=== PATIENT | male | born 1975 | race African-American/Black ===

== ENCOUNTER → 2018-10-06 | Outpatient (CLI) | payer BC ==
[~2018-10-06] MED LIST: AMLO10TA6 PO; ATOR20TA58 PO; DOCU-109 PO; FLUT9.9S NS; HYDR-2868 PO; INSU100I13 SQ; INSU100I17 SQ; METO50TA6 PO; OXYC1TAB15 PO; SILD100T PO; VALS1TAB22 PO
[2018-10-06 14:16] LABS: BASO # 0.1 x10^3/uL (0.0-0.2); BASO % 1 % (0-3); EOS # 0.4 x10^3/uL (0.0-0.7); EOS % 5 % (0-3); HEMATOCRIT 41.7 % (39.0-53.0); HEMOGLOBIN 14.1 g/dL (13.0-17.5); LYMPH # 2.8 x10^3/uL (1.0-4.8); LYMPH % 33 % (24-48); MEAN CORPUSCULAR HEMOGLOBIN 27 pg (25-35); MEAN CORPUSCULAR HGB CONC 34 g/dL (31-37); MEAN CORPUSCULAR VOLUME 81 fL (79-100); MONO # 0.5 x10^3/uL (0.0-1.1); MONO % 6 % (0-9); NEUT # 4.7 x10^3uL (1.8-7.7); NEUT % 56 % (31-73); PLATELET COUNT 201 x10^3/uL (140-400); RED BLOOD COUNT 5.18 x10^6/uL (4.30-5.70); RED CELL DISTRIBUTION WIDTH 13.2 % (11.5-14.5); WHITE BLOOD COUNT 8.4 x10^3/uL (4.0-11.0)
[2018-10-06 14:36] LABS: ALBUMIN 3.9 g/dL (3.4-5.0); CREATININE 1.5 mg/dL (0.7-1.3); TOTAL PROTEIN 7.9 g/dL (6.4-8.2)
[2018-10-06 14:37] LABS: GFR 61.5; POTASSIUM 3.6 mmol/L (3.5-5.1); TOTAL BILIRUBIN 0.4 mg/dL (0.2-1.0)
== END | disposition home or self-care (01) ==
LOC: SURGPAT 12:36
PROVIDERS: ATTEND Surgery
DX: Z01.818 Encounter for other preprocedural examination (principal); K80.20 Calculus of gallbladder without cholecystitis without obstruction
CPT/HCPCS: 36415; 80053; 85025

== ENCOUNTER 2018-10-11 09:12 | Day surgery (SDC) | payer BC ==
[~2018-10-11] VITALS: Ht 176.5 cm; Wt 92.5 kg
[~2018-10-11 09:12] MED LIST changes: -DOCU-109 PO; +HYDROmorphone 2 MG/ML VIAL IV PRN; +IV RINGERS,LACTATED 1000ML 1,000 ML IV SCH; +LIDOCAINE 1% PF 2 ML VIAL. ID PRN; +MORPHINE SULFATE 2 MG/ML VIAL. IV PRN; +ONDANSETRON PF 4 MG/2 ML VIAL. IV PRN; -OXYC1TAB15 PO; +PROCHLORPERAZINE 10 MG/2 ML VIAL. IV PRN; +fentaNYL PF VIAL 100 MCG/2 ML VIAL IV PRN
[2018-10-11] MEDS ORDERED: DEXAMETHASONE SOD PHOS 20 MG/5 ML VIAL. ONE (09:36)
[2018-10-11] MEDS ORDERED: PROPOFOL 20 ML IV ONE ×2 (09:36→13:09)
[2018-10-11] MEDS ORDERED: LIDOCAINE 2% PF Vial for OR 5 ML VIAL. ONE (09:36)
[2018-10-11] MEDS ORDERED: ROCURONIUM 50 MG/5 ML VIAL. ONE (09:37)
[2018-10-11] MEDS ORDERED: fentaNYL PF VIAL 100 MCG/2 ML VIAL ONE ×2 (09:37→13:49)
[2018-10-11] MEDS ORDERED: MIDAZOLAM HCL/PF 2 MG/2 ML VIAL. ONE (09:37)
[2018-10-11] MEDS ORDERED: BUPIVAC MPF-EPI 0.5%-1:200000 30 ML VIAL. ONE (11:32)
[2018-10-11] MEDS ORDERED: IOHEXOL 300 MG/ML 100ML VIAL. ONE (11:33)
[2018-10-11] MEDS ORDERED: SURGICEL HEMOSTAT 4X8 EACH. ONE (11:33)
[2018-10-11] MEDS ORDERED: GLUCAGON,HUMAN RECOMBINANT 1 MG/ML VIAL. ONE (11:33)
[2018-10-11] MEDS ORDERED: ePHEDrine PF IN SALINE 50 MG/5 ML DISP.SYRIN IV ONE (13:05)
[2018-10-11] MEDS ORDERED: PHENYLEPHRINE in 0.9% NACL PF 1 MG/10 ML SYRINGE. IV ONE (13:49)
[2018-10-11] MEDS ORDERED: NEOSTIGMINE METHYLSULFATE 5 MG/5 ML SYRINGE. ONE (13:49)
[2018-10-11] MEDS ORDERED: GLYCOPYRROLATE 1 MG/5 ML VIAL. ONE (13:49)
[2018-10-11] MEDS ORDERED: ONDANSETRON PF 4 MG/2 ML VIAL. ONE (13:53)
[2018-10-11] MEDS ORDERED: KETOROLAC 30 MG/ML INJ FOR OR. INJ ONE (14:03)
--- NOTE | 2018-10-11 14:27 | OP ---
DATE OF SURGERY: 10/11/2018 PREOPERATIVE DIAGNOSES: Laparoscopic cholecystectomy and umbilical hernia. POSTOPERATIVE DIAGNOSES: Laparoscopic cholecystectomy and umbilical hernia. PROCEDURE: 1. Laparoscopic cholecystectomy. 2. Primary repair of umbilical hernia. SURGEON: Alexei Rollins MD CORE CUTTER: NICKI Martinez. ANESTHESIA: General endotracheal. ESTIMATED BLOOD LOSS: 25 mL. INTRAVENOUS FLUIDS: 1500 mL. INDICATIONS: The patient is a 42-year-old gentleman with right upper quadrant pain. Abdominal ultrasound shows stones and sludge. He is brought for cholecystectomy. OPERATIVE FINDINGS: The gallbladder was supple and distended with viscous bile. Visual inspection of the remainder of the abdomen failed to reveal obvious abnormalities aside his umbilical hernia. DESCRIPTION OF PROCEDURE: The patient brought to the operating suite, given a general endotracheal anesthetic and the abdomen prepped and draped in usual sterile fashion. A supraumbilical incision was infiltrated with local anesthetic, incised and a 5 mm Visiport used to safely gain access into the abdominal cavity, taking care to avoid injury to abdominal contents. Pneumoperitoneum established. Camera inserted. Inspection carried out with results as noted above. With the table in reverse Trendelenburg rolled to the left, the epigastric, midclavicular, and lateral ports were placed under direct vision. The gallbladder was quite distended and thin walled and as such in order to grasp it, we aspirated approximately 100 mL of viscous dark bile. This allowed grasping of the fundus and retracting the gallbladder superolaterally. The cystic duct and cystic artery were exposed. Cystic duct clipped on the gallbladder side. Attempted cholangiogram were unsuccessful due to my inability to thread the catheter in the cystic duct. In light of this, it was clipped x 3 and divided, taking care to avoid compromise or injury to the common duct. The anterior cystic artery was clipped and divided and the posterior branch similarly clipped and divided and gallbladder freed from the bed with cautery dissection and placed in an EndoCatch bag. Hemostasis obtained with electrocautery. No evidence of bile leak in the fossa. A 19-Bhutanese round Nawaf drain was brought through the epigastric port out the lateral port, sewn to the skin with a 2-0 silk and left in the subhepatic space for postoperative drainage. Table returned to level. Gallbladder delivered through the epigastric incision. Epigastric incision was closed with 0 Vicryl suture. At 6 cm of water, no bleeding from the closure or from the midclavicular port site after its removal. The supraumbilical port excised and the small incision extended to allow dissection of the umbilical hernia sac. When the second being removed, the small defect was closed with interrupted inverted [id number] 0 PDS sutures. When a correct sponge count was obtained, the umbilical skin was tacked to the underlying repair with 3-0 Vicryl. Skin incisions closed with subcuticular 4-0 Monocryl. Steri-Strips and sterile dressings applied. The patient was awakened from his anesthetic and taken to the recovery room in satisfactory condition. ALEXEI ROLLINS MD DR: HEIKE/maikol JOB#: [id number] / [id number]
--- NOTE | 2018-10-11 14:29 | DISCH ---
DISCHARGE INSTRUCTIONS Condition on Discharge Condition on Discharge: Stable Activity After Discharge Activity Instructions for Disc: Activity as tolerated, Avoid exertion Driving Instructions after Dis: Do not drive (3-4 days) Diet after Discharge Diet after Discharge: Regular Wound Incision Care Wound/Incision Care: Ice to area for comfort Other wound/incision instructi: lenny shower Follow-Up Follow up with: Jaden Solis with JARON output IVY ROLLINS MD Oct 11, 2018 14:29
[2018-10-11] MEDS ORDERED: INSULIN LISPRO 100 UNIT/ML 3ML VIAL. SQ ONE (15:15)
[2018-10-11] MEDS ORDERED: OXYC1TAB15 PO (15:16)
[2018-10-11] MEDS ORDERED: DOCU-109 PO (15:18)
[2018-10-11] MEDS ORDERED: oxyCODONE/APAP 5/325 1 TAB TABLET ONE (16:14)
[2018-10-11 16:43] VITALS: BP 148/88
[2018-10-11] MEDS ORDERED: oxyCODONE/APAP 5/325 1 TAB TABLET PO ONE (19:45)
--- NOTE | 2018-10-13 15:09 | PATHOLOGY ---
[facility] Accession Number: [id number] . 01 Material submitted: . PART A: GALLBLADDER PART B: UMBILICAL HERNIA SAC . 01 Clinical history: . Gallstones . 02 Diagnosis: A. Gallbladder, laparoscopic cholecystectomy: - Chronic cholecystitis, mild. . B. Segments of fibromembranous and fibroadipose tissue, umbilical hernia repair: - Hernia sac. . (JPM:director auto; 10/13/2018) MBR/10/13/2018 . 02 Comment: There are no calculi identified within the gallbladder lumen or specimen container. There is no evidence of malignancy. . (JPM:director auto; 10/13/2018) . 02 Electronically signed: . Swapnil Randolph MD, Pathologist NPI- [id number] . 01 Gross description: . A. The specimen is received in formalin, labeled "Roycee Ohajazu, gallbladder". Received is an intact gallbladder measuring 8.2 x 2.8 x 1.0 cm in greatest dimensions displaying pink-girard serosal surfaces. Opening the gallbladder reveals a velvety, red-marcos mucosa with a gallbladder wall thickness of 0.1 cm. Calculi are not present upon filtration of the gallbladder and specimen container, and no masses or lesions are noted grossly. Product Test Engineer sections, to include the proximal margin, are submitted in cassette A1. . B. The specimen is received in formalin, labeled "Roycee Ohajazu, umbilical hernia sac". Received are multiple segments of yellow-marcos fibroadipose tissue measuring 2.2 x 1.8 x 1.0 cm in aggregate dimensions. No distinct nodules or lesions are noted grossly. The specimen is submitted representatively in cassette B1. (CAA; 10/12/2018) QAC/QAC . 02 Pathologist provided ICD-10: K81.1, K42.9 . 02 CPT . 326523, 592210 Specimen Comment: A courtesy copy of this report has been sent to Specimen Comment: [phone], . Specimen Comment: Report sent to / DR CHAVEZ Performed at: 01 [facility] [address], [place], [place] [id number] MD Tony Patel MD Phone: [phone] Performed at: 02 [facility] [address], [place] [id number] MD Swapnil Randolph MD Phone: [phone]
== END 2018-10-11 18:24 | disposition home or self-care (01) ==
LOC: SURG 09:12
PROVIDERS: ATTEND Surgery
DX: K81.1 Chronic cholecystitis (principal); K42.9 Umbilical hernia without obstruction or gangrene; I10 Essential (primary) hypertension; E11.9 Type 2 diabetes mellitus without complications; Z79.84 Long term (current) use of oral hypoglycemic drugs; Z98.890 Other specified postprocedural states; Z80.0 Family history of malignant neoplasm of digestive organs; Z83.3 Family history of diabetes mellitus; Z79.899 Other long term (current) drug therapy
CPT/HCPCS: 47562; 49585; 82962; 88302; 88304; A7015; J0690; J1100; J1885; J2001; J2250; J2370; J2405; J2704; J2710; J3010; J3490; J7030; J7120; Q9967; J1610

== ENCOUNTER → 2018-11-03 | Outpatient (CLI) | payer BC ==
[2018-10-11 16:43] VITALS: BP 148/88
[~2018-11-03] MED LIST changes: +DOCU-109 PO; -HYDROmorphone 2 MG/ML VIAL IV PRN; -IV RINGERS,LACTATED 1000ML 1,000 ML IV SCH; -LIDOCAINE 1% PF 2 ML VIAL. ID PRN; -MORPHINE SULFATE 2 MG/ML VIAL. IV PRN; -ONDANSETRON PF 4 MG/2 ML VIAL. IV PRN; +OXYC1TAB15 PO; -PROCHLORPERAZINE 10 MG/2 ML VIAL. IV PRN; -fentaNYL PF VIAL 100 MCG/2 ML VIAL IV PRN
--- NOTE | 2018-11-03 11:16 | RAD ---
MRI Thoracic Spine without contrast History: Mid back pain, history of cervical fusion Technique: Multiplanar, multi sequential noncontrast MR imaging was performed of the thoracic spine. Comparison: None Findings: There is motion degradation. Thoracic vertebral body stature and AP alignment are maintained. Thoracic cord is not expanded, no expansile signal abnormality, cannot accurately evaluate for more subtle signal abnormality due to the degree of motion. There is no significant thoracic spinal stenosis. There is mild attenuation of the posterior thecal sac of mid to superior thoracic levels most likely due to posterior epidural lipomatosis. No significant focal posterior disc abnormality is identified of the thoracic spine. There is no significant marrow edema. Intervertebral disc spaces are relatively preserved. There is likely small hemangioma of the T12 vertebral body. Neural foramina are not significantly narrowed, possible mild narrowing by facet on the right at T11-12. There could be a T1 and T2 hyperintense lesion of the inferior left thyroid gland about 1.8 cm although poorly characterized. Impression: 1. Exam is degraded by significant motion. Posterior epidural signal abnormality of the mid to superior thoracic levels is probably due to epidural lipomatosis with mild attenuation of the thecal sac, no significant thoracic spinal stenosis. 2. There may be T1 and T2 hyperintense lesion of the left thyroid gland as can be seen with colloid cyst although poorly characterized. Electronically signed by: King Holley MD (11/03/2018 11:12 AM) [facility]
== END | disposition home or self-care (01) ==
LOC: MRI 09:13
PROVIDERS: ATTEND Family Medicine
DX: R20.2 Paresthesia of skin (principal); M54.6 Pain in thoracic spine
CPT/HCPCS: 72146

== ENCOUNTER 2018-11-07 14:42 | Emergency (ER) | payer BC ==
[~2018-11-07] VITALS: Ht 177.8 cm; Wt 88.5 kg
[~2018-11-07 14:42] MED LIST changes: -AMLO10TA6 PO; +AMLO10TA8 PO
[2018-11-07 14:48] VITALS: BP 170/89
--- NOTE | 2018-11-07 15:32 | PHYS DOC ---
Past Medical History Additional Past Medical Histor: gastroparesis Past Surgical History: Cholecystectomy Additional Past Surgical Histo: hernia Adult General Chief Complaint Chief Complaint: OTHER COMPLAINTS HPI HPI 42-year-old male presents to ER with his who reports patient had foul- smelling drainage from mid umbilical surgical site this morning. Patient had hernia and gallbladder surgery on 10/11/[address] Stanley and has had f/u with him since surg. Patient reports he has had some abdominal pain since surgery denies acute changes. He denies fever, nausea or vomiting, change in bowel pattern, swelling in extremities. Patient states he has ongoing issues with nerve pain which he has been evaluated for. Patient's reports patient has recently been diagnosed with gastroparesis and for the past 5 months has had ongoing issues with medical symptoms-both deny acute change in patient's condition since surgery last month. Pt reports he had regular bowel movement this morning and has been urinating without symptoms. Patient also has complaints of ongoing nerve pain which she reports any type of touch to chest or abdomen he has nerve pain which is also been ongoing for the past several months. He has talked to his doctors regarding this symptom as well denies acute changes, swelling, dizziness, or skin discoloration. Patient reports he has follow-up appointment with Dr. Stanley on . Review of Systems Review of Systems Constitutional: Denies fever or chills [] Respiratory: Denies cough or shortness of breath [] Cardiovascular: No additional information not addressed in HPI [] GI: Denies nausea, vomiting, bloody stools or diarrhea. Reports intermittent abd pain at mid umbilical- no acute change since surg. in September : Denies dysuria or hematuria [] Musculoskeletal: Denies back pain or joint pain [] Integument: Reports surgical site umbilical w/foul smelling drainage this morning Neurologic: Denies headache, focal weakness or sensory changes [] Endocrine: Denies polyuria or polydipsia [] All other systems were reviewed and found to be within normal limits, except as documented in this note. Allergies Allergies Allergies Coded Allergies Type Severity Reaction Last Updated Verified No Known Drug Allergies 10/06/18 No Physical Exam Physical Exam Constitutional: Well developed, well nourished, no acute distress, non-toxic appearance. [] HENT: Normocephalic, atraumatic, bilateral external ears normal, oropharynx moist, no oral exudates, nose normal. [] Eyes: Pupils equal, conjunctiva normal, no discharge. [] Neck: Normal range of motion, no tenderness, supple, no stridor. [] Cardiovascular: Heart rate regular rhythm, no murmur [] Lungs & Thorax: Bilateral breath sounds clear to auscultation. Resp. equal/ nonlabored Abdomen: Bowel sounds normal, soft-no distention or rigidity, tenderness on palpation around surgical site 3 laparoscopic sites right upper abdomen which are well healing with no drainage, swelling, or erythema at sites. Umbilical surg. site with scabbing to area-no purulent drainage, erythema, palpable mass, or swelling around site. No masses, no pulsatile masses. [] Skin: Warm, dry, no erythema, no rash. [] Back: No tenderness, no CVA tenderness. [] Extremities: No tenderness, no cyanosis, no clubbing, ROM intact, no edema. [] Neurologic: Alert and oriented X 3, normal motor function, normal sensory function, no focal deficits noted. [] Psychologic: Affect normal, judgement normal, mood normal. [] Current Patient Data Vital Signs Vital Signs Date Time Temp Pulse Resp B/P (MAP) Pulse Ox O2 Delivery O2 Flow Rate FiO2 11/07/18 14:48 98.5 81 18 170/89 (116) 100 Room Air 98.5 Lab Values Laboratory Tests Test 11/07/18 15:20 White Blood Count 7.4 x10^3/uL (4.0-11.0) Red Blood Count 5.07 x10^6/uL (4.30-5.70) Hemoglobin 13.7 g/dL (13.0-17.5) Hematocrit 41.2 % (39.0-53.0) Mean Corpuscular Volume 81 fL (79-100) Mean Corpuscular Hemoglobin 27 pg (25-35) Mean Corpuscular Hemoglobin Concent 33 g/dL (31-37) Red Cell Distribution Width 13.4 % (11.5-14.5) Platelet Count 178 x10^3/uL (140-400) Neutrophils (%) (Auto) 55 % (31-73) Lymphocytes (%) (Auto) 34 % (24-48) Monocytes (%) (Auto) 6 % (0-9) Eosinophils (%) (Auto) 4 % (0-3) H Basophils (%) (Auto) 1 % (0-3) Neutrophils # (Auto) 4.1 x10^3uL (1.8-7.7) Lymphocytes # (Auto) 2.5 x10^3/uL (1.0-4.8) Monocytes # (Auto) 0.5 x10^3/uL (0.0-1.1) Eosinophils # (Auto) 0.3 x10^3/uL (0.0-0.7) Basophils # (Auto) 0.1 x10^3/uL (0.0-0.2) Sodium Level 140 mmol/L (136-145) Potassium Level 3.4 mmol/L (3.5-5.1) L Chloride Level 98 mmol/L (98-107) Carbon Dioxide Level 35 mmol/L (21-32) H Anion Gap 7 (6-14) Blood Urea Nitrogen 15 mg/dL (8-26) Creatinine 1.4 mg/dL (0.7-1.3) H Estimated GFR (Cockcroft-Gault) 66.6 BUN/Creatinine Ratio 11 (6-20) Glucose Level 271 mg/dL (70-99) H Calcium Level 9.1 mg/dL (8.5-10.1) Total Bilirubin 0.3 mg/dL (0.2-1.0) Aspartate Amino Transferase (AST) 16 U/L (15-37) Alanine Aminotransferase (ALT) 24 U/L (16-63) Alkaline Phosphatase 123 U/L (46-116) H Total Protein 7.5 g/dL (6.4-8.2) Albumin 3.4 g/dL (3.4-5.0) Albumin/Globulin Ratio 0.8 (1.0-1.7) L Laboratory Tests 11/07/18 15:20 Laboratory Tests 11/07/18 15:20 EKG EKG [] Radiology/Procedures Radiology/Procedures [] Course & Med Decision Making Course & Med Decision Making Pertinent Labs reviewed. (See chart for details) During initial exam patient reports his symptoms have been ongoing for the past 5 months with no acute change since his surgery. Patient and his did not mention initially that patient has been on gabapentin and Lyrica for his paresthesias. Following hernia and gallbladder surgery patient was started on Protonix and Reglan and his Lyrica had been stopped. Patient and his were uncertain as to why he was unable to take Lyrica or gabapentin. Discussed he should discuss this further with his doctor as her can be interactions between the Lyrica and Reglan. In patient's record it was also noted that patient had MRI of his thoracic spine 11/03/18 due to his ongoing paraesthesias which was not mentioned during initial exam as well- which he is d/t f/u with Dr. Chavez to discuss those results. 1620: Pt was evaluated in the ER for surgical wound recheck had basic labs done. Exam was unremarkable on surgical sites to right upper abdomen and umbilical. No obvious signs of infection and WBCs normal limits at 7.4 with no bands. Glucose elevated at 271 which patient reports he had just eaten prior to coming to the ER and anion gap normal limits at 7. Patient reports his morning blood glucose was 80 and they do monitor at home. With examination normal limits and labs unremarkable discussed plans for home discharge as patient has follow-up appointment this week with Dr. Stanley. Pt has been in no distress and was afebrile. Pt had no signs of infection at surgical sites and abd was soft/ nondistended with no rigidity or palpable masses at surgical sites. Education provided on signs and symptoms to return to ER for an discharge instructions were discussed. Staff Physician Addendum: I was working in the ER during the course of this patient's visit. I was available for consultation as needed, but I was not directly involved in the care of this patient. Dragon Disclaimer Dragon Disclaimer This electronic medical record was generated, in whole or in part, using a voice recognition dictation system. Departure Departure Impression: Primary Impression: Encounter for post surgical wound check Additional Impression: Paresthesia Disposition: HOME, SELF-CARE Condition: STABLE Referrals: JUANY CHAVEZ MD (PCP) Patient Instructions: Paresthesia, Wound Check Additional Instructions: Keep scheduled appointment this week with Dr. Stanley for reevaluation of surgical wounds. Continue to clean surgical sites as you have previously been doing at home. Continue monitoring for signs of infection. Further discuss concerns of nerve pain with your primary care physician on options for treatment. Problem Qualifiers CHRISTAL CHANG APRN Nov 07, 2018 15:32 KEERTHI GIANG MD Nov 07, 2018 17:44
[2018-11-07 15:41] LABS: BASO # 0.1 x10^3/uL (0.0-0.2); BASO % 1 % (0-3); EOS # 0.3 x10^3/uL (0.0-0.7); EOS % 4 % (0-3); HEMATOCRIT 41.2 % (39.0-53.0); HEMOGLOBIN 13.7 g/dL (13.0-17.5); LYMPH # 2.5 x10^3/uL (1.0-4.8); LYMPH % 34 % (24-48); MEAN CORPUSCULAR HEMOGLOBIN 27 pg (25-35); MEAN CORPUSCULAR HGB CONC 33 g/dL (31-37); MEAN CORPUSCULAR VOLUME 81 fL (79-100); MONO # 0.5 x10^3/uL (0.0-1.1); MONO % 6 % (0-9); NEUT # 4.1 x10^3uL (1.8-7.7); NEUT % 55 % (31-73); PLATELET COUNT 178 x10^3/uL (140-400); RED BLOOD COUNT 5.07 x10^6/uL (4.30-5.70); RED CELL DISTRIBUTION WIDTH 13.4 % (11.5-14.5); WHITE BLOOD COUNT 7.4 x10^3/uL (4.0-11.0)
[2018-11-07 15:59] LABS: CALCIUM 9.1 mg/dL (8.5-10.1); CREATININE 1.4 mg/dL (0.7-1.3); GFR 66.6; POTASSIUM 3.4 mmol/L (3.5-5.1)
[2018-11-07 16:05] LABS: ALBUMIN 3.4 g/dL (3.4-5.0); ALBUMIN/GLOBULIN RATIO 0.8 (1.0-1.7); TOTAL BILIRUBIN 0.3 mg/dL (0.2-1.0); TOTAL PROTEIN 7.5 g/dL (6.4-8.2)
== END 2018-11-07 17:05 | disposition home or self-care (01) ==
LOC: ER 14:42
DX: Z48.01 Encounter for change or removal of surgical wound dressing (principal); R20.2 Paresthesia of skin; R10.9 Unspecified abdominal pain; Z90.49 Acquired absence of other specified parts of digestive tract
CPT/HCPCS: 36415; 80053; 85025; 99283

== ENCOUNTER → 2018-11-09 | Outpatient (CLI) | payer BC ==
[2018-11-07 14:48] VITALS: BP 170/89
--- NOTE | 2018-11-09 17:56 | KCIC ---
Examination: THYROID ULTRASOUND History: Left thyroid nodule seen on MRI of the thoracic spine dated 11/03/2018 Comparison/Correlation: None Findings: Thyroid ultrasound exam was performed. Right thyroid lobe measures 5.54 cm x 2.25 cm x 1.91 cm. Left thyroid lobe nodule measures 5.45 cm x 1.48 cm x 1.49 cm. At the right thyroid interpolar region, there is a 0.9 cm x 0.6 cm x 1.1 cm solid nodule. More inferiorly involving the right thyroid lobe, there is a 2.2 cm x 1.3 cm x 1.2 cm tall solid nodule of echogenicity which is slightly lower than the thyroid gland. It is well-circumscribed. As the left thyroid interpolar region, there is a 1.1 cm x 0.96 cm x 0.8 cm cystic lesion. At the left lobe lower pole, there is a 1.4 cm x 2.1 cm x 1.4 cm tall cystic lesion with solid component within it. At the left side of the thyroid isthmus, there is a 1 cm diameter nodule. Smaller nodules which are subcentimeter in size are present bilaterally involving the thyroid gland. No significant flow involving the nodules identified on color Doppler imaging. Impression: TI-RADS category 2. Multiple nodules are present. Right thyroid lobe nodule has a stable corresponding finding on CT of the cervical spine with contrast dated 06/13/2004. The left thyroid mixed cystic and solid lesion does not have the corresponding finding on 06/13/2004 CT exam. Interval follow-up in 8 months to assess stability should be considered by ultrasound. Electronically signed by: Cal Brandt MD (11/09/2018 5:51 PM) [id number]
== END | disposition home or self-care (01) ==
LOC: KCIC US 14:15
PROVIDERS: ATTEND Family Medicine
DX: E04.2 Nontoxic multinodular goiter (principal)
CPT/HCPCS: 76536

== ENCOUNTER → 2019-05-06 | Outpatient (CLI) | payer BC ==
--- NOTE | 2019-05-06 15:09 | KCIC ---
Thyroid ultrasound HISTORY: Follow-up thyroid nodules COMPARISON: November 09, 2018. Right thyroid: Measures 5.6 x 1.9 x 1.8 cm. Mostly solid nodule in the right lower pole measures 2.1 x 1.3 x 1.2 cm with internal vascularity, appears similar prior study. Another mostly solid appearing nodule at the mid to upper pole measures 12 x 8 x 5 mm with vascularity, appears similar as the prior study. There are some additional much smaller subcentimeter nodules identified. Isthmus: Measures 5 mm. Left thyroid: Measures 4.8 x 1.7 x 1.5 cm. Mostly cystic nodule in the lower pole measures 19 x 18 x 16 mm, demonstrates some solid nodularity along the wall and peripheral vascularity. Previously measured 14 x 21 x 14 mm, and is now slightly larger in 2 dimensions.. Another mostly cystic nodule at the midpole measures 11 x 10 x 8 mm, not significantly changed, with a small calcification or nodular component. Multiple additional smaller subcentimeter nodules are also present. IMPRESSION: 1. Mostly cystic nodule at the left lower thyroid measures slightly larger in 2 dimensions on today's exam. 2. Other additional thyroid nodules appear grossly similar. Electronically signed by: Lance Fields MD (05/06/2019 3:06 PM) [facility]
== END | disposition home or self-care (01) ==
LOC: KCIC US 11:02
PROVIDERS: ATTEND Physician Assistant Medical
DX: E04.2 Nontoxic multinodular goiter (principal)
CPT/HCPCS: 76536

== ENCOUNTER → 2019-05-25 | Day surgery (SDC) | payer BC ==
[~2019-05-25] MED LIST changes: +HYDROmorphone 2 MG/ML VIAL IV PRN; +IV RINGERS,LACTATED 1000ML 1,000 ML IV SCH; +LIDOCAINE 2% PF 5 ML VIAL. ONE; +MORPHINE SULFATE 2 MG/ML VIAL. IV PRN; +ONDANSETRON PF 4 MG/2 ML VIAL. IV PRN; +PROCHLORPERAZINE 10 MG/2 ML VIAL. IV PRN; +PROPOFOL 40 ML IV ONE; +fentaNYL PF VIAL 100 MCG/2 ML VIAL IV PRN
[2019-05-25 09:13] VITALS: BP 163/97
--- NOTE | 2019-05-25 09:13 | CONS ---
DATE OF CONSULTATION: REFERRING PHYSICIAN: Isidoro Lebron MD REASON FOR CONSULTATION: Left upper quadrant abdominal pain, colorectal screening with a family history of colon cancer. HISTORY OF PRESENT ILLNESS: This is a 43-year-old male whose past medical history is significant for diabetes, hypertension, gastroparesis status post cholecystectomy and hernia surgery, is seen for colonoscopy. He has had persistent left upper quadrant pain, which has now improved since his constipation is improved. There has been no diarrhea. Weight and appetite have been stable and prior cholecystectomy was not helpful in controlling his discomfort. PAST MEDICAL HISTORY: Diabetes, hyperlipidemia, hypertension, status post cholecystectomy, status post hernia surgery. ALLERGIES: None. MEDICATIONS: Include amlodipine, atorvastatin, Colace, hydralazine, insulin, Viagra, and valsartan. SOCIAL HISTORY: Nondrinker, nonsmoker. FAMILY HISTORY: Significant for diabetes with his mother and his brother, high blood pressure in mother and his father. REVIEW OF SYSTEMS: HEENT: There is no decrease in visual acuity issues. CARDIAC: There is history of hypertension. PULMONARY: No shortness breath, productive cough, or asthma. RENAL: No dysuria, frequency or hematuria. PSYCHIATRIC: No mood swings, depression or insomnia. NEUROLOGIC: No stroke or migraine or neuropathy. HEMATOLOGIC: No bleeding, bruising or coagulopathy. ENDOCRINE: History of diabetes. GASTROINTESTINAL: See history of present illness. MUSCULOSKELETAL: No osteoarthrosis, arthralgias or myalgias. DERMATOLOGIC: No skin rashes or pruritus. PHYSICAL EXAMINATION: GENERAL: Reveals a well-nourished, well-developed male who is alert, cooperative, in no acute distress. VITAL SIGNS: Temperature 97, pulse 81, and respirations 20. HEENT: Reveals normocephalic and atraumatic head. Pupils and extraocular muscles are not tested. Sclerae anicteric. NECK: Supple. LUNGS: Clear. CARDIOVASCULAR: Reveals an S1, S2 without S3, S4 or appreciable murmur. ABDOMEN: Reveals left upper quadrant abdominal tenderness to deep palpation. Right upper quadrant cholecystectomy incision. EXTREMITIES: Reveals no cyanosis, clubbing or edema. IMPRESSION: Left upper quadrant abdominal pain with family history of colon cancer, etiology to be determined, gastroparesis, malignancy, colon cancer, diverticular disease, certainly in the differential; therefore, recommend colonoscopy. If this is unrevealing, then a CT scan to further assess would be pursued. I would like to thank Dr. Isidoro Lebron for allowing us to consult and participate in the patient's care. LEN RODRIGUEZ MD DR: NICOLA/maikol JOB#: [id number] / [id number]
--- NOTE | 2019-05-26 15:07 | PATHOLOGY ---
[facility] Accession Number: [id number] . 01 Material submitted: . colon - TRANSVERSE COLON POLYP. Modifiers: transverse . 01 Clinical history: . CRCS . 02 Diagnosis: Colon biopsy, transverse colon polyp: - Tubular adenoma. (JPM:ana rosa; 05/26/2019) QMS/05/26/2019 . 02 Comment: There is no high grade dysplasia or evidence of malignancy. . 02 Electronically signed: . Swapnil Randolph MD, Pathologist NPI- [id number] . 01 Gross description: . Received in formalin labeled "Ohajazu, Roycee, transverse colon polyp," is a 0.6 x 0.5 x 0.5 cm polypoid piece of marcos soft tissue. The presumed margin is inked and the specimen is sectioned perpendicular to the margin and entirely submitted in cassette A1. (TSD; 05/25/2019) TOB/TOB . 02 Pathologist provided ICD-10: D12.3 . 02 CPT . 456880 Specimen Comment: A courtesy copy of this report has been sent to Specimen Comment: [phone], . Specimen Comment: Report sent to / DR CHAVEZ Performed at: 01 [facility] [address], [place], [place] [id number] MD Tony Patel MD Phone: [phone] Performed at: 02 [facility] [address] [place], [place] [id number] MD Swapnil Randolph MD Phone: [phone]
== END ==
LOC: SURG 07:20
PROVIDERS: ATTEND Internal Medicine Gastroenterology
DX: D12.3 Benign neoplasm of transverse colon (principal); K64.0 First degree hemorrhoids; I10 Essential (primary) hypertension; E11.9 Type 2 diabetes mellitus without complications; E78.5 Hyperlipidemia, unspecified; Z90.49 Acquired absence of other specified parts of digestive tract; Z79.84 Long term (current) use of oral hypoglycemic drugs
CPT/HCPCS: 45385; 88305; J2001; J2704; 45380

== ENCOUNTER → 2019-10-14 | Outpatient (CLI) | payer BC ==
[2019-05-25 09:13] VITALS: BP 163/97
[~2019-10-14] MED LIST changes: +CONTRAST GIVEN. MC PRN; -HYDROmorphone 2 MG/ML VIAL IV PRN; +IOHEXOL 240 MG/ML 50ML VIAL. PO ONE; +IOHEXOL 300 MG/ML 100ML VIAL. IV ONE; -IV RINGERS,LACTATED 1000ML 1,000 ML IV SCH; -LIDOCAINE 2% PF 5 ML VIAL. ONE; -MORPHINE SULFATE 2 MG/ML VIAL. IV PRN; -ONDANSETRON PF 4 MG/2 ML VIAL. IV PRN; -PROCHLORPERAZINE 10 MG/2 ML VIAL. IV PRN; -PROPOFOL 40 ML IV ONE; -fentaNYL PF VIAL 100 MCG/2 ML VIAL IV PRN
[2019-10-14 11:08] LABS: CREATININE 1.4 mg/dL (0.7-1.3); GFR 66.3
--- NOTE | 2019-10-14 16:51 | RAD ---
EXAM: Abdomen and pelvis CT with intravenous contrast. HISTORY: Left lower quadrant pain. TECHNIQUE: Computed tomographic images of the abdomen and pelvis were obtained following the administration of 75 cc Omnipaque 300 intravenous contrast. Multiplanar reformatting was performed. *One or more of the following individualized dose reduction techniques were utilized for this examination: 1. Automated exposure control. 2. Adjustment of the mA and/or kV according to patient size. 3. Use of iterative reconstruction technique. COMPARISON: None. FINDINGS: Evaluation of the lower thorax is limited due to respiratory motion. No infiltrate or effusion is seen. No hepatic lesion is seen. The gallbladder is surgically absent. The pancreas, spleen, adrenal glands and kidneys are unremarkable, allowing for limitations due to motion. The appendix is not seen. There is segmental wall thickening involving the sigmoid colon. There is suggestion of surrounding fatty stranding. This can be seen with acute colitis of infectious or inflammatory etiologies. No obstruction is seen. The urinary bladder is unremarkable. There is no lymphadenopathy. There is no suspicious osseous lesion. There is a small bone island within L3. IMPRESSION: 1. Significantly limited exam due to motion. 2. Segmental wall thickening with suspected slight surrounding stranding involving the sigmoid colon. This is difficult to characterize given the reported motion artifact. Correlate for possible colitis of infectious or inflammatory etiologies. Electronically signed by: Koki Uribe MD (10/14/2019 4:48 PM) [place] [id number]
== END | disposition home or self-care (01) ==
LOC: CT 11:31
PROVIDERS: ATTEND Internal Medicine Gastroenterology
DX: K63.89 Other specified diseases of intestine (principal); I10 Essential (primary) hypertension; E11.9 Type 2 diabetes mellitus without complications
CPT/HCPCS: 36415; 74177; 82565; 84520; Q9966; Q9967

== ENCOUNTER → 2019-11-21 | Outpatient (CLI) | payer BC ==
[2019-05-25 09:13] VITALS: BP 163/97
[~2019-11-21] MED LIST changes: -CONTRAST GIVEN. MC PRN; -IOHEXOL 240 MG/ML 50ML VIAL. PO ONE; -IOHEXOL 300 MG/ML 100ML VIAL. IV ONE
--- NOTE | 2019-11-21 16:34 | KCIC ---
Thyroid ultrasound HISTORY: Nontoxic multinodular goiter. COMPARISON: 05/06/2019. Right thyroid: Measures 5.7 x 2.2 x 2.1 cm, overall not significant changed. Solid right lower pole nodule measures 2.3 x 1.3 x 1.4 cm, about 2 mm larger than on previous study. Again demonstrates some internal vascularity. Smaller right upper pole nodule measures 9 x 4 x 6 mm, slightly smaller than prior study. Mild vascularity is seen around the margins. Additional tiny nodules are seen in the right pole. Isthmus: Measures 5 mm similar to prior. Left thyroid: Measures 4.4 x 1.4 x 1.6 cm. Lower pole nodule measures 8 x 7 x 10 mm, now has a more solid appearance than on the prior study. Previously measured 18 x 19 x 16 mm. This demonstrates some peripheral vascularity. Mostly cystic mid pole nodule measures 13 x 9 x 7 mm, compared with 11 x 8 x 8 mm previously. This demonstrates some mild marginal calcification. Numerous additional tiny nodules are seen. IMPRESSION: 1. Lower pole left thyroid nodule has decreased in size but now demonstrates a more solid appearance with some peripheral vascularity. 2. Left mid pole mostly cystic nodule slightly greater in size with vascularity. 3. Right upper pole vascular nodule slightly decreased in size. 4. Right lower pole vascular nodule slightly increased in size. Electronically signed by: Lance Fields MD (11/21/2019 4:32 PM) [id number]
== END | disposition home or self-care (01) ==
LOC: KCIC US 10:28
PROVIDERS: ATTEND Family Medicine
DX: E04.2 Nontoxic multinodular goiter (principal)
CPT/HCPCS: 76536

== ENCOUNTER 2020-01-03 15:51 | Inpatient (IN) | payer BC ==
[~2020-01-03] VITALS: Ht 175.3 cm; Wt 87.6 kg
--- NOTE | 2020-01-03 15:59 | PHYS DOC ---
Past Medical History Past Medical History: Other Additional Past Medical Histor: gastroparesis Past Surgical History: Cholecystectomy Additional Past Surgical Histo: hernia Smoking Status: Never Smoker Alcohol Use: None Drug Use: None Adult General HPI HPI Patient is a 44 year old male who presents with syncope. Patient reports he had [place] today, when he started to feel dizzy. Patient reports he had eaten couple oranges and after this approximate 12 months later his dizziness went away. States he did have a syncopal episode, but he does remember events he just felt really weak during this time. Patient reports he did lose his control of bowels at the time this happened. States he did have some weakness yesterday, did have an episode of diarrhea yesterday as well. Denies headache. Denies visual changes. Denies photophobia. Denies nausea. Denies vomiting. Denies any discomfort. But does continue to report he just feels weak Review of Systems Review of Systems Constitutional: Denies fever or chills [] Eyes: Denies change in visual acuity, redness, or eye pain [] HENT: Denies nasal congestion or sore throat [] Respiratory: Denies cough or shortness of breath [] Cardiovascular: No additional information not addressed in HPI [] GI: Denies abdominal pain, nausea, vomiting, bloody stools reports one episode of diarrhea yesterday, one episode of diarrhea today, with loss of bowel control one time today. [] : Denies dysuria or hematuria [] Musculoskeletal: Denies back pain or joint pain [] Integument: Denies rash or skin lesions [] Neurologic: Denies headache, focal weakness or sensory changes does report he had syncopal episode earlier today [] Endocrine: Denies polyuria or polydipsia [] All other systems were reviewed and found to be within normal limits, except as documented in this note. Current Medications Current Medications Current Medications Medications (Trade) Dose Ordered Sig/Emir Start Time Stop Time Status Last Admin Dose Admin Hydralazine HCl (Apresoline Inj) 10 mg 1X ONCE 01/03/20 18:30 01/03/20 18:31 DC 01/03/20 19:12 10 MG Metoclopramide HCl (Reglan Vial) 10 mg 1X ONCE 01/03/20 18:30 01/03/20 18:31 DC 01/03/20 19:12 10 MG Ondansetron HCl (Zofran) 4 mg 1X ONCE 01/03/20 16:00 01/03/20 16:20 DC Pantoprazole Sodium (Protonix) 40 mg 1X ONCE 01/03/20 17:15 01/03/20 17:16 DC 01/03/20 17:33 40 MG Potassium Chloride (Klor-Con) 40 meq 1X ONCE 01/03/20 17:15 01/03/20 17:16 DC 01/03/20 17:33 40 MEQ Sodium Chloride 1,000 ml @ 125 mls/hr Q8H 01/03/20 18:46 01/04/20 18:45 Allergies Allergies Allergies Coded Allergies Type Severity Reaction Last Updated Verified No Known Drug Allergies 05/25/19 No Physical Exam Physical Exam Constitutional: Well developed, well nourished, no acute distress, non-toxic appearance. [] HENT: Normocephalic, atraumatic, bilateral external ears normal, oropharynx moist, no oral exudates, nose normal. [] Eyes: PERRLA, EOMI, conjunctiva normal, no discharge. No nystagmus noted. No photophobia. Tracks well with eyes. [] Neck: Normal range of motion, no tenderness, supple, no stridor. [] Cardiovascular:Heart rate regular rhythm, no murmur [] Lungs & Thorax: Bilateral breath sounds clear to auscultation [] Abdomen: Bowel sounds normal, soft, no tenderness, no masses, no pulsatile masses. [] Skin: Warm, dry, no erythema, no rash. [] Back: No tenderness, no CVA tenderness. [] Extremities: No tenderness, no cyanosis, no clubbing, ROM intact, no edema. Moves all extremities at this time [] Neurologic: Alert and oriented X 3, normal motor function, normal sensory function, no focal deficits noted. [] Psychologic: Affect normal, judgement normal, mood normal. [] Current Patient Data Vital Signs Vital Signs Date Time Temp Pulse Resp B/P (MAP) Pulse Ox O2 Delivery O2 Flow Rate FiO2 01/03/20 19:12 92 162/82 01/03/20 18:18 20 96 Room Air 01/03/20 15:58 99.0 99.0 Lab Values Laboratory Tests Test 01/03/20 16:46 01/03/20 17:37 White Blood Count 8.1 x10^3/uL (4.0-11.0) Red Blood Count 5.20 x10^6/uL (4.30-5.70) Hemoglobin 14.2 g/dL (13.0-17.5) Hematocrit 42.1 % (39.0-53.0) Mean Corpuscular Volume 81 fL (79-100) Mean Corpuscular Hemoglobin 27 pg (25-35) Mean Corpuscular Hemoglobin Concent 34 g/dL (31-37) Red Cell Distribution Width 13.4 % (11.5-14.5) Platelet Count 173 x10^3/uL (140-400) Neutrophils (%) (Auto) 74 % (31-73) H Lymphocytes (%) (Auto) 13 % (24-48) L Monocytes (%) (Auto) 11 % (0-9) H Eosinophils (%) (Auto) 1 % (0-3) Basophils (%) (Auto) 1 % (0-3) Neutrophils # (Auto) 6.0 x10^3/uL (1.8-7.7) Lymphocytes # (Auto) 1.1 x10^3/uL (1.0-4.8) Monocytes # (Auto) 0.9 x10^3/uL (0.0-1.1) Eosinophils # (Auto) 0.1 x10^3/uL (0.0-0.7) Basophils # (Auto) 0.1 x10^3/uL (0.0-0.2) Sodium Level 135 mmol/L (136-145) L Potassium Level 3.2 mmol/L (3.5-5.1) L Chloride Level 97 mmol/L (98-107) L Carbon Dioxide Level 30 mmol/L (21-32) Anion Gap 8 (6-14) Blood Urea Nitrogen 20 mg/dL (8-26) Creatinine 1.8 mg/dL (0.7-1.3) H Estimated GFR (Cockcroft-Gault) 49.4 BUN/Creatinine Ratio 11 (6-20) Glucose Level 172 mg/dL (70-99) H Lactic Acid Level 2.5 mmol/L (0.4-2.0) H Calcium Level 8.6 mg/dL (8.5-10.1) Magnesium Level 1.8 mg/dL (1.8-2.4) Total Bilirubin 0.3 mg/dL (0.2-1.0) Aspartate Amino Transferase (AST) 29 U/L (15-37) Alanine Aminotransferase (ALT) 18 U/L (16-63) Alkaline Phosphatase 123 U/L (46-116) H Troponin I Quantitative < 0.017 ng/mL (0.000-0.055) Total Protein 7.6 g/dL (6.4-8.2) Albumin 3.8 g/dL (3.4-5.0) Albumin/Globulin Ratio 1.0 (1.0-1.7) Urine Collection Type Unknown Urine Color Yellow Urine Clarity Clear Urine pH 5.0 (<5.0-8.0) Urine Specific Mineral 1.015 (1.000-1.030) Urine Protein 30 mg/dL (NEG-TRACE) Urine Glucose (UA) Negative mg/dL (NEG) Urine Ketones (Stick) Negative mg/dL (NEG) Urine Blood Negative (NEG) Urine Nitrite Negative (NEG) Urine Bilirubin Negative (NEG) Urine Urobilinogen Dipstick 0.2 mg/dL (0.2 mg/dL) Urine Leukocyte Esterase Negative (NEG) Urine RBC Occ /HPF (0-2) Urine WBC Occ /HPF (0-4) Urine Squamous Epithelial Cells Occ /LPF Urine Bacteria 0 /HPF (0-FEW) Urine Hyaline Casts Few /HPF Urine Mucus Mod /LPF Laboratory Tests 01/03/20 16:46 Laboratory Tests 01/03/20 16:46 EKG EKG no STEMI per Dr Escudero. Normal sinus rhythm[] Radiology/Procedures Radiology/Procedures []TECHNIQUE: Routine CT of the head without contrast. Soft tissues and bone windows were reviewed. PQRS compliance statement - One or more of the following individualized dose reduction techniques were utilized for this study: 1. Automated exposure control 2. Adjustment of the mA and/or kV according to patient size 3. Use of iterative reconstruction technique FINDINGS: There is no evidence of hemorrhage, mass or extra-axial fluid collection. Proctor-white differentiation is maintained with no evidence of edema. There is no mass effect or shift of the intracranial structures. The ventricles, basilar cisterns and cortical sulci are normal in size and configuration for the patients stated age. The cerebellum and brainstem are unremarkable. The calvarium demonstrates no evidence of fracture or focal lesion. There is normal aeration of the visualized paranasal sinuses and mastoid air cells. The visualized portions of the orbits are normal. IMPRESSION: No evidence for acute intracranial process. Electronically signed by: Tyrell Block MD (01/03/2020 4:38 PM) [id number] Comparison: February 25, 2008 Findings: No consolidation or pleural effusion. Normal heart size. No pneumothorax. Surgical clips right upper quadrant. Post traumatic deformity of the right distal clavicle. Postop changes lower cervical spine. Impression: 1. No acute cardiopulmonary process. Electronically signed by: Alireza Solorio DO (01/03/2020 5:07 PM) [id number] DICTATED and SIGNED BY: ALIREZA SOLORIO DO DATE: 01/03/201706 Course & Med Decision Making Course & Med Decision Making Pertinent Labs and Imaging studies reviewed. (See chart for details) [Reviewed findings with patient, patient states he continues to feel ill. States he does not have any dizziness, however he continued to feel weak. States he has had increased hiccups since he has been here, normal able to be treated with antacids, however has not had any improvement since he has been here. States he is concerned his gastroparesis is causing his discomfort. Will consult with hospitalist at this time. ]@[id number] - Discussed with Dr Dillard, agrees to observation admission with patient. Patient agreeable with this plan without further questions Dragon Disclaimer Dragon Disclaimer This electronic medical record was generated, in whole or in part, using a voice recognition dictation system. Departure Departure Impression: Primary Impression: Syncope and collapse Additional Impressions: Hypokalemia Elevated lactic acid level Disposition: ADMITTED INPATIENT Admitting Physician: HOLLY Condition: STABLE Referrals: JUANY CHAVEZ MD (PCP) Problem Qualifiers MICA HEAD APRN Jan 03, 2020 15:59
[2020-01-03] MEDS ORDERED: ONDANSETRON PF 4 MG/2 ML VIAL. IV ONE (16:00)
[2020-01-03] MEDS ORDERED: IV NORMAL SALINE 1000ML BAG 1,000 ML IV ONE (16:00)
--- NOTE | 2020-01-03 16:40 | RAD ---
EXAM: CT Head without IV contrast CLINICAL HISTORY: Syncope COMPARISON: None. TECHNIQUE: Routine CT of the head without contrast. Soft tissues and bone windows were reviewed. PQRS compliance statement - One or more of the following individualized dose reduction techniques were utilized for this study: 1. Automated exposure control 2. Adjustment of the mA and/or kV according to patient size 3. Use of iterative reconstruction technique FINDINGS: There is no evidence of hemorrhage, mass or extra-axial fluid collection. Proctor-white differentiation is maintained with no evidence of edema. There is no mass effect or shift of the intracranial structures. The ventricles, basilar cisterns and cortical sulci are normal in size and configuration for the patients stated age. The cerebellum and brainstem are unremarkable. The calvarium demonstrates no evidence of fracture or focal lesion. There is normal aeration of the visualized paranasal sinuses and mastoid air cells. The visualized portions of the orbits are normal. IMPRESSION: No evidence for acute intracranial process. Electronically signed by: Tyrell Block MD (01/03/2020 4:38 PM) [id number]
--- NOTE | 2020-01-03 16:51 | EKG ---
[facility] [address] [place] [address] Test Date: 2020-01-03 Test Time: 15:59:52 Pat Name: ALETHEA PABLO Department: Room: Gender: M [employer]er [employer]: : 1975 Requested By: MICA HEAD Order Number: [id number] Reading MD: Measurements Intervals [place] Rate: 83 P: 59 [place]: 154 QRS: 54 QRSD: 78 T: 28 QT: 322 QTc: 383 Interpretive Statements SINUS RHYTHM LEFT ATRIAL ABNORMALITY QRS(T) CONTOUR ABNORMALITY CONSIDER INFERIOR MYOCARDIAL DAMAGE ABNORMAL ECG RI6.01 No previous ECG available for comparison
[2020-01-03 16:54] LABS: BASO # 0.1 x10^3/uL (0.0-0.2); BASO % 1 % (0-3); EOS # 0.1 x10^3/uL (0.0-0.7); EOS % 1 % (0-3); HEMATOCRIT 42.1 % (39.0-53.0); HEMOGLOBIN 14.2 g/dL (13.0-17.5); LYMPH # 1.1 x10^3/uL (1.0-4.8); LYMPH % 13 % (24-48); MEAN CORPUSCULAR HEMOGLOBIN 27 pg (25-35); MEAN CORPUSCULAR HGB CONC 34 g/dL (31-37); MEAN CORPUSCULAR VOLUME 81 fL (79-100); MONO # 0.9 x10^3/uL (0.0-1.1); MONO % 11 % (0-9); NEUT % 74 % (31-73); PLATELET COUNT 173 x10^3/uL (140-400); RED CELL DISTRIBUTION WIDTH 13.4 % (11.5-14.5); WHITE BLOOD COUNT 8.1 x10^3/uL (4.0-11.0)
[2020-01-03 17:03] LABS: CALCIUM 8.6 mg/dL (8.5-10.1); CREATININE 1.8 mg/dL (0.7-1.3); GFR 49.4; POTASSIUM 3.2 mmol/L (3.5-5.1)
[2020-01-03 17:09] LABS: ALBUMIN 3.8 g/dL (3.4-5.0); MAGNESIUM 1.8 mg/dL (1.8-2.4); TOTAL BILIRUBIN 0.3 mg/dL (0.2-1.0); TOTAL PROTEIN 7.6 g/dL (6.4-8.2)
--- NOTE | 2020-01-03 17:10 | RAD ---
CHEST AP ONLY History: Syncope Comparison: February 25, 2008 Findings: No consolidation or pleural effusion. Normal heart size. No pneumothorax. Surgical clips right upper quadrant. Post traumatic deformity of the right distal clavicle. Postop changes lower cervical spine. Impression: 1. No acute cardiopulmonary process. Electronically signed by: Alireza Solorio DO (01/03/2020 5:07 PM) [id number]
[2020-01-03] MEDS ORDERED: PANTOPRAZOLE 40 MG TABLET.DR. PO ONE (17:15)
[2020-01-03] MEDS ORDERED: POTASSIUM CHLORIDE 20 MEQ TABLET.ER. PO ONE (17:15)
[2020-01-03 17:55] LABS: BILIRUBIN,URINE NEGATIVE (NEG); CLARITY,URINE CLEAR; COLOR,URINE YELLOW; NITRITE,URINE NEGATIVE (NEG); PROTEIN,URINE 30 mg/dL (NEG-TRACE); UROBILINOGEN,URINE 0.2 mg/dL (0.2 mg/dL)
[2020-01-03 18:06] LABS: BACTERIA,URINE 0 /HPF (0-FEW); RBC,URINE OCC /HPF (0-2); SQUAMOUS EPITHELIAL CELL,UR OCC /LPF; WBC,URINE OCC /HPF (0-4)
[2020-01-03 18:07] LABS: HYALINE CASTS, URINE FEW /HPF
[2020-01-03] MEDS ORDERED: METOCLOPRAMIDE HCL 10 MG/2 ML VIAL. IVP ONE (18:30)
[2020-01-03] MEDS ORDERED: hydrALAZINE 20 MG/ML VIAL. IVP ONE (18:30)
[2020-01-03 20:15] VITALS: BP 145/82
[2020-01-03 23:00] VITALS: BP 138/69
[2020-01-04 01:06] LABS: BASO # 0.1 x10^3/uL (0.0-0.2); BASO % 1 % (0-3); EOS # 0.1 x10^3/uL (0.0-0.7); EOS % 1 % (0-3); HEMATOCRIT 37.7 % (39.0-53.0); HEMOGLOBIN 12.9 g/dL (13.0-17.5); LYMPH # 1.7 x10^3/uL (1.0-4.8); LYMPH % 28 % (24-48); MEAN CORPUSCULAR HEMOGLOBIN 27 pg (25-35); MEAN CORPUSCULAR HGB CONC 34 g/dL (31-37); MEAN CORPUSCULAR VOLUME 80 fL (79-100); MONO # 0.6 x10^3/uL (0.0-1.1); MONO % 10 % (0-9); NEUT # 3.6 x10^3/uL (1.8-7.7); NEUT % 59 % (31-73); PLATELET COUNT 145 x10^3/uL (140-400); RED BLOOD COUNT 4.73 x10^6/uL (4.30-5.70); RED CELL DISTRIBUTION WIDTH 13.5 % (11.5-14.5); WHITE BLOOD COUNT 6.1 x10^3/uL (4.0-11.0)
[2020-01-04 01:30] LABS: CALCIUM 7.7 mg/dL (8.5-10.1); CREATININE 1.4 mg/dL (0.7-1.3); POTASSIUM 3.8 mmol/L (3.5-5.1)
[2020-01-04] MEDS ORDERED: ACETAMINOPHEN 325 MG TABLET. PO PRN ×2 (02:00)
[2020-01-04] MEDS: IV NORMAL SALINE 1000ML BAG 1,000 ML IV SCH ×6 (02:46→18:38)
[2020-01-04 03:00] VITALS: BP 150/89
[2020-01-04 07:00] VITALS: BP 155/93
--- NOTE | 2020-01-04 08:36 | NUR ---
[facility] following. Discussed with RN, pt from home, up ad bishop. Blood and urine cultures pending. [facility] will continue to follow. RN advised no SW needs at this time. [facility] will continue to follow. Addendum: 01/04/20 at 1150 by SARAHY LEIVA Pt being transferred to a [facility] floor.
[2020-01-04] MEDS ORDERED: FLU VAX QS 2019-20 (36MOS+)/PF 0.5 ML SYRINGE. VAX IM ONE (09:00)
--- NOTE | 2020-01-04 10:20 | PDOC1 ---
History and Physical Date of Admission Date of Admission DATE: 01/04/20 TIME: 10:18 Source Source: Chart review, Patient History of Present Illness History of Present Illness Gunnar is a 44 year old male who presents with syncope. he had not felt well for days, had been sick with a cough and has had poor oral intake, he had a prodrome and felt dizzy before he passed out, + LOC, and he did lose his control of bowels at the time this happened. but he had diarrhea yesterday also, Denies headache. Denies visual changes. Denies photophobia. Denies nausea. Denies vomiting. was sleeping hard this AM and difficult to arouse, Past Medical History Cardiovascular: HTN Pulmonary: No pertinent hx Psych: No pertinent hx Rheumatologic: No pertinent hx Infectious disease: No pertinent hx ENT: No pertinent hx Renal/: No pertinent hx Endocrine: Diabetes Past Surgical History Past Surgical History: Other Family History Family History: Hypertension Social History Smoke: No ALCOHOL: none Drugs: None Current Problem List Problem List Problems Medical Problems: (1) Elevated lactic acid level Status: Acute (2) Hypokalemia Status: Acute (3) Syncope and collapse Status: Acute Current Medications Current Medications Current Medications Sodium Chloride 1,000 ml @ 1,000 mls/hr 1X ONCE IV Last administered on 01/03/20at 16:52; Start 01/03/20 at 16:00; Stop 01/03/20 at 16:59; Status DC Ondansetron HCl (Zofran) 4 mg 1X ONCE IV ; Start 01/03/20 at 16:00; Stop 08/14 at 16:20; Status DC Pantoprazole Sodium (Protonix) 40 mg 1X ONCE PO Last administered on 01/03/20at 17:33; Start 01/03/20 at 17:15; Stop 01/03/20 at 17:16; Status DC Potassium Chloride (Klor-Con) 40 meq 1X ONCE PO Last administered on 01/03/20at 17:33; Start 01/03/20 at 17:15; Stop 01/03/20 at 17:16; Status DC Metoclopramide HCl (Reglan Vial) 10 mg 1X ONCE IVP Last administered on 01/03/20at 19:12; Start 01/03/20 at 18:30; Stop 01/03/20 at 18:31; Status DC Hydralazine HCl (Apresoline Inj) 10 mg 1X ONCE IVP Last administered on 01/03/20at 19:12; Start 01/03/20 at 18:30; Stop 01/03/20 at 18:31; Status DC Sodium Chloride 1,000 ml @ 125 mls/hr Q8H IV Last administered on 01/04/20at 05:01; Start 01/03/20 at 18:46; Stop 01/04/20 at 18:45 Influenza Virus Vaccine Quadrival (Afluria Quad 2019-20 (3yr Up) Syringe) 0.5 ml ONCE ONCE VAX IM Last administered on 01/04/20at 08:37; Start 01/04/20 at 09:00; Stop 01/04/20 at 09:01; Status DC Acetaminophen (Tylenol) 325 mg PRN Q4HRS PRN PO MILD PAIN / TEMP Last administered on 01/04/20at 02:08; Start 01/04/20 at 02:00 Acetaminophen (Tylenol) 650 mg PRN Q4HRS PRN PO fever; Start 01/04/20 at 02:00 Sodium Chloride 1,000 ml @ 125 mls/hr Q8H IV ; Start 01/04/20 at 09:45 Active Scripts Active Reported Colace (Docusate Sodium) 100 Mg Capsule 1 Cap PO BID Novolog Flexpen (Insulin Aspart) 100 Unit/1 Ml Insuln.pen 25 Unit SQ AC Lantus Solostar (Insulin Glargine,Hum.rec.anlog) 100 Unit/1 Ml Insuln.pen 70 Unit SQ DAILY Viagra (Sildenafil Citrate) 100 Mg Tablet 100 Mg PO ONCE PRN Hydralazine Hcl 25 Mg Tablet 1 Tab PO BID Amlodipine Besylate 10 Mg Tablet 10 Mg PO DAILY Atorvastatin Calcium 20 Mg Tablet 20 Mg PO HS Diovan Hct 320-25 Mg Tablet (Valsartan/Hydrochlorothiazide) 1 Each Tablet 1 Tab PO DAILY Allergies Allergies: Coded Allergies: No Known Drug Allergies (Unverified , 05/25/19) ROS Review of System has felt ill for days, cough, General: YES: Chills, Fatigue, Appetite; No: Night Sweats, Malaise, Other PSYCHOLOGICAL ROS: No: Anxiety, Behavioral Disorder, Concentration difficultie, Decreased libido, Depression, Disorientation, Hallucinations, Hostility, Irritablity, Memory difficulties, Mood Swings, Obsessive thoughts, Physical abuse, Sexual abuse, Sleep disturbances, Suicidal ideation, Other Eyes: No Blurry vision, No Decreased vision, No Double vision, No Dry eyes, No Excessive tearing, No Eye Pain, No Itchy Eyes, No Loss of vision, No Photophobia, No Scotomata, No Uses contacts, No Uses glasses, No Other Respiratory: YES: Cough; No: Hemoptysis, Orthopnea, Pleuritic Pain, Shortness of breath, SOB with excertion, Sputum Changes, Stridor, Tachypnea, Wheezing, Other Cardiovascular: No Chest Pain, No Palpitations, No Orthopnea, No Paroxysmal Noc. Dyspnea, No Edema, No Lt Headedness, No Other Gastrointestinal: No Nausea, No Vomiting, No Abdominal Pain, No Diarrhea, No Constipation, No Melena, No Hematochezia, No Other Genitourinary: No Dysuria, No Frequency, No Incontinence, No Hematuria, No Retention, No Discharge, No Urgency, No Pain, No Flank Pain, No Other, No , No , No , No , No , No , No Musculoskeletal: No Gait Disturbance, No Joint Pain, No Joint Stiffness, No Joint Swelling, No Muscle Pain, No Muscular Weakness, No Pain In:, No Swelling In:, No Other Neurological: No Behavorial Changes, No Bowel/Bladder ControlChng, No Confusion, No Dizziness, No Gait Disturbance, No Headaches, No Impaired Coord/balance, No Memory Loss, No Numbness/Tingling, No Seizures, No Speech Problems, No Tremors, No Visual Changes, No Weakness, No Other Skin: Yes Dry Skin; No Eczema, No Hair Changes, No Lumps, No Mole Changes, No Mottling, No Nail Changes, No Pruritus, No Rash, No Skin Lesion Changes, No Other, No Acne Physical Exam Physical Exam op dry, poor skin turgor, appears dry General: Alert, Oriented X3, Cooperative, No acute distress HEENT: Atraumatic, PERRLA, EOMI, Mucous membr. moist/pink Lungs: Clear to auscultation, Normal air movement Heart: S1S2 Abdomen: Normal bowel sounds, Soft Extremities: No clubbing, No edema Skin: No rashes, No significant lesion Neuro: Normal tone, Sensation intact Psych/Mental Status: Mood NL Vitals Vitals Vital Signs Date Time Temp Pulse Resp B/P (MAP) Pulse Ox O2 Delivery O2 Flow Rate FiO2 01/04/20 08:00 Room Air 01/04/20 07:00 99.6 86 18 155/93 (113) 96 99.6 Labs Labs Laboratory Tests Test 01/03/20 16:46 01/03/20 17:37 01/03/20 20:25 01/03/20 20:30 White Blood Count 8.1 x10^3/uL (4.0-11.0) Red Blood Count 5.20 x10^6/uL (4.30-5.70) Hemoglobin 14.2 g/dL (13.0-17.5) Hematocrit 42.1 % (39.0-53.0) Mean Corpuscular Volume 81 fL (79-100) Mean Corpuscular Hemoglobin 27 pg (25-35) Mean Corpuscular Hemoglobin Concent 34 g/dL (31-37) Red Cell Distribution Width 13.4 % (11.5-14.5) Platelet Count 173 x10^3/uL (140-400) Neutrophils (%) (Auto) 74 % (31-73) Lymphocytes (%) (Auto) 13 % (24-48) Monocytes (%) (Auto) 11 % (0-9) Eosinophils (%) (Auto) 1 % (0-3) Basophils (%) (Auto) 1 % (0-3) Neutrophils # (Auto) 6.0 x10^3/uL (1.8-7.7) Lymphocytes # (Auto) 1.1 x10^3/uL (1.0-4.8) Monocytes # (Auto) 0.9 x10^3/uL (0.0-1.1) Eosinophils # (Auto) 0.1 x10^3/uL (0.0-0.7) Basophils # (Auto) 0.1 x10^3/uL (0.0-0.2) Sodium Level 135 mmol/L (136-145) Potassium Level 3.2 mmol/L (3.5-5.1) Chloride Level 97 mmol/L (98-107) Carbon Dioxide Level 30 mmol/L (21-32) Anion Gap 8 (6-14) Blood Urea Nitrogen 20 mg/dL (8-26) Creatinine 1.8 mg/dL (0.7-1.3) Estimated GFR (Cockcroft-Gault) 49.4 BUN/Creatinine Ratio 11 (6-20) Glucose Level 172 mg/dL (70-99) Lactic Acid Level 2.5 mmol/L (0.4-2.0) 1.6 mmol/L (0.4-2.0) Calcium Level 8.6 mg/dL (8.5-10.1) Magnesium Level 1.8 mg/dL (1.8-2.4) Total Bilirubin 0.3 mg/dL (0.2-1.0) Aspartate Amino Transf (AST/SGOT) 29 U/L (15-37) Alanine Aminotransferase (ALT/SGPT) 18 U/L (16-63) Alkaline Phosphatase 123 U/L (46-116) Troponin I Quantitative < 0.017 ng/mL (0.000-0.055) < 0.017 ng/mL (0.000-0.055) Total Protein 7.6 g/dL (6.4-8.2) Albumin 3.8 g/dL (3.4-5.0) Albumin/Globulin Ratio 1.0 (1.0-1.7) Urine Collection Type Unknown Urine Color Yellow Urine Clarity Clear Urine pH 5.0 (<5.0-8.0) Urine Specific [place] 1.015 (1.000-1.030) Urine Protein 30 mg/dL (NEG-TRACE) Urine Glucose (UA) Negative mg/dL (NEG) Urine Ketones (Stick) Negative mg/dL (NEG) Urine Blood Negative (NEG) Urine Nitrite Negative (NEG) Urine Bilirubin Negative (NEG) Urine Urobilinogen Dipstick 0.2 mg/dL (0.2 mg/dL) Urine Leukocyte Esterase Negative (NEG) Urine RBC Occ /HPF (0-2) Urine WBC Occ /HPF (0-4) Urine Squamous Epithelial Cells Occ /LPF Urine Bacteria 0 /HPF (0-FEW) Urine Hyaline Casts Few /HPF Urine Mucus Mod /LPF Glucose (Fingerstick) 192 mg/dL (70-99) Test 01/04/20 00:49 01/04/20 07:36 White Blood Count 6.1 x10^3/uL (4.0-11.0) Red Blood Count 4.73 x10^6/uL (4.30-5.70) Hemoglobin 12.9 g/dL (13.0-17.5) Hematocrit 37.7 % (39.0-53.0) Mean Corpuscular Volume 80 fL (79-100) Mean Corpuscular Hemoglobin 27 pg (25-35) Mean Corpuscular Hemoglobin Concent 34 g/dL (31-37) Red Cell Distribution Width 13.5 % (11.5-14.5) Platelet Count 145 x10^3/uL (140-400) Neutrophils (%) (Auto) 59 % (31-73) Lymphocytes (%) (Auto) 28 % (24-48) Monocytes (%) (Auto) 10 % (0-9) Eosinophils (%) (Auto) 1 % (0-3) Basophils (%) (Auto) 1 % (0-3) Neutrophils # (Auto) 3.6 x10^3/uL (1.8-7.7) Lymphocytes # (Auto) 1.7 x10^3/uL (1.0-4.8) Monocytes # (Auto) 0.6 x10^3/uL (0.0-1.1) Eosinophils # (Auto) 0.1 x10^3/uL (0.0-0.7) Basophils # (Auto) 0.1 x10^3/uL (0.0-0.2) Sodium Level 137 mmol/L (136-145) Potassium Level 3.8 mmol/L (3.5-5.1) Chloride Level 102 mmol/L (98-107) Carbon Dioxide Level 28 mmol/L (21-32) Anion Gap 7 (6-14) Blood Urea Nitrogen 17 mg/dL (8-26) Creatinine 1.4 mg/dL (0.7-1.3) Estimated GFR (Cockcroft-Gault) 66.0 Glucose Level 192 mg/dL (70-99) Calcium Level 7.7 mg/dL (8.5-10.1) Troponin I Quantitative < 0.017 ng/mL (0.000-0.055) Glucose (Fingerstick) 184 mg/dL (70-99) Laboratory Tests Test 01/03/20 16:46 01/03/20 17:37 01/03/20 20:25 01/03/20 20:30 White Blood Count 8.1 x10^3/uL (4.0-11.0) Red Blood Count 5.20 x10^6/uL (4.30-5.70) Hemoglobin 14.2 g/dL (13.0-17.5) Hematocrit 42.1 % (39.0-53.0) Mean Corpuscular Volume 81 fL (79-100) Mean Corpuscular Hemoglobin 27 pg (25-35) Mean Corpuscular Hemoglobin Concent 34 g/dL (31-37) Red Cell Distribution Width 13.4 % (11.5-14.5) Platelet Count 173 x10^3/uL (140-400) Neutrophils (%) (Auto) 74 % (31-73) Lymphocytes (%) (Auto) 13 % (24-48) Monocytes (%) (Auto) 11 % (0-9) Eosinophils (%) (Auto) 1 % (0-3) Basophils (%) (Auto) 1 % (0-3) Neutrophils # (Auto) 6.0 x10^3/uL (1.8-7.7) Lymphocytes # (Auto) 1.1 x10^3/uL (1.0-4.8) Monocytes # (Auto) 0.9 x10^3/uL (0.0-1.1) Eosinophils # (Auto) 0.1 x10^3/uL (0.0-0.7) Basophils # (Auto) 0.1 x10^3/uL (0.0-0.2) Sodium Level 135 mmol/L (136-145) Potassium Level 3.2 mmol/L (3.5-5.1) Chloride Level 97 mmol/L (98-107) Carbon Dioxide Level 30 mmol/L (21-32) Anion Gap 8 (6-14) Blood Urea Nitrogen 20 mg/dL (8-26) Creatinine 1.8 mg/dL (0.7-1.3) Estimated GFR (Cockcroft-Gault) 49.4 BUN/Creatinine Ratio 11 (6-20) Glucose Level 172 mg/dL (70-99) Lactic Acid Level 2.5 mmol/L (0.4-2.0) 1.6 mmol/L (0.4-2.0) Calcium Level 8.6 mg/dL (8.5-10.1) Magnesium Level 1.8 mg/dL (1.8-2.4) Total Bilirubin 0.3 mg/dL (0.2-1.0) Aspartate Amino Transf (AST/SGOT) 29 U/L (15-37) Alanine Aminotransferase (ALT/SGPT) 18 U/L (16-63) Alkaline Phosphatase 123 U/L (46-116) Troponin I Quantitative < 0.017 ng/mL (0.000-0.055) < 0.017 ng/mL (0.000-0.055) Total Protein 7.6 g/dL (6.4-8.2) Albumin 3.8 g/dL (3.4-5.0) Albumin/Globulin Ratio 1.0 (1.0-1.7) Urine Collection Type Unknown Urine Color Yellow Urine Clarity Clear Urine pH 5.0 (<5.0-8.0) Urine Specific [place] 1.015 (1.000-1.030) Urine Protein 30 mg/dL (NEG-TRACE) Urine Glucose (UA) Negative mg/dL (NEG) Urine Ketones (Stick) Negative mg/dL (NEG) Urine Blood Negative (NEG) Urine Nitrite Negative (NEG) Urine Bilirubin Negative (NEG) Urine Urobilinogen Dipstick 0.2 mg/dL (0.2 mg/dL) Urine Leukocyte Esterase Negative (NEG) Urine RBC Occ /HPF (0-2) Urine WBC Occ /HPF (0-4) Urine Squamous Epithelial Cells Occ /LPF Urine Bacteria 0 /HPF (0-FEW) Urine Hyaline Casts Few /HPF Urine Mucus Mod /LPF Glucose (Fingerstick) 192 mg/dL (70-99) Test 01/04/20 00:49 01/04/20 07:36 White Blood Count 6.1 x10^3/uL (4.0-11.0) Red Blood Count 4.73 x10^6/uL (4.30-5.70) Hemoglobin 12.9 g/dL (13.0-17.5) Hematocrit 37.7 % (39.0-53.0) Mean Corpuscular Volume 80 fL (79-100) Mean Corpuscular Hemoglobin 27 pg (25-35) Mean Corpuscular Hemoglobin Concent 34 g/dL (31-37) Red Cell Distribution Width 13.5 % (11.5-14.5) Platelet Count 145 x10^3/uL (140-400) Neutrophils (%) (Auto) 59 % (31-73) Lymphocytes (%) (Auto) 28 % (24-48) Monocytes (%) (Auto) 10 % (0-9) Eosinophils (%) (Auto) 1 % (0-3) Basophils (%) (Auto) 1 % (0-3) Neutrophils # (Auto) 3.6 x10^3/uL (1.8-7.7) Lymphocytes # (Auto) 1.7 x10^3/uL (1.0-4.8) Monocytes # (Auto) 0.6 x10^3/uL (0.0-1.1) Eosinophils # (Auto) 0.1 x10^3/uL (0.0-0.7) Basophils # (Auto) 0.1 x10^3/uL (0.0-0.2) Sodium Level 137 mmol/L (136-145) Potassium Level 3.8 mmol/L (3.5-5.1) Chloride Level 102 mmol/L (98-107) Carbon Dioxide Level 28 mmol/L (21-32) Anion Gap 7 (6-14) Blood Urea Nitrogen 17 mg/dL (8-26) Creatinine 1.4 mg/dL (0.7-1.3) Estimated GFR (Cockcroft-Gault) 66.0 Glucose Level 192 mg/dL (70-99) Calcium Level 7.7 mg/dL (8.5-10.1) Troponin I Quantitative < 0.017 ng/mL (0.000-0.055) Glucose (Fingerstick) 184 mg/dL (70-99) VTE Prophylaxis Ordered VTE Prophylaxis Devices: No VTE Pharmacological Prophylaxi: Yes Assessment/Plan Assessment/Plan syncope, needs some tele to r/o, but appears dry, although BP was high on admit, HTN, mult agents, poor control Dm2, on insulin, high doses, resistant hypokalemia, hyponatremia, acute renal failure, vasomotor nephropathy BLADIMIR MADDEN MD Jan 04, 2020 10:20
--- NOTE | 2020-01-04 10:51 | EKG ---
[facility] [address] [place] [address] Test Date: 2020-01-04 Test Time: 10:50:02 Pat Name: ALETHEA PABLO Department: Room: 430 Gender: M [employer] Supervisor: : 1975 Requested By: BLADIMIR MADDEN Order Number: [id number] Reading MD: Measurements Intervals [place] Rate: 83 P: 38 DC: 156 QRS: 32 QRSD: 68 T: 24 QT: 336 QTc: 395 Interpretive Statements SINUS RHYTHM LOW LIMB LEAD VOLTAGE NO SPECIFIC ECG ABNORMALITIES RI6.02 No previous ECG available for comparison
[2020-01-04 11:00] VITALS: BP 136/85
[2020-01-04] MEDS ORDERED: ENOXAPARIN 40 MG/0.4 ML SYRINGE. SQ SCH (11:00)
[2020-01-04] MEDS ORDERED: INSULIN GLARGINE SYRINGE. SQ SCH ×2 (11:00→21:00)
[2020-01-04] MEDS ORDERED: hydroCHLOROthiazide 25 MG TABLET PO SCH (11:00)
[2020-01-04] MEDS ORDERED: LOSARTAN POTASSIUM 50 MG TABLET. PO SCH (11:00)
[2020-01-04] MEDS: amLODIPine BESYLATE 10 MG TABLET PO SCH (11:04)
[2020-01-04] MEDS: INSULIN LISPRO 300 UNITS/3 ML VIAL. SQ SCH ×2 (11:33→17:00)
--- NOTE | 2020-01-04 11:56 | PDOC2 ---
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 Reports that he was heading to the grocery store and he was right by the truck stop when he felt significantly weak, felt flushed, jittery, with blurred vision and sweaty. He fell down to the ground but no apparent injury. He was dizzy but did not completely lose consciousness. Reports that though he is on the floor he was still aware of his surroundings. Denies any chest pain or palpitations at that time. He was given orange juice and EMS checked his BP and his SBP was in the 70s. Apparently in the last 2 days he has not been eating much complaining of appetite lose and has been having nonprodutive cough but no snessing or runny n ose. No recorded fever but felt weakn in the last 2 days. Denies any recent exposure to someone who has been sick. Reported some nausea but no vomiting or diarrhea. Despite that he has not been drinking enough he continued on with his BP meds and despite not eating well he continued on with his premeal insulin. Yesterday morning he ate very little amount of rice and did not take his insulin and around 11 AM when he was close tot [facility], he took 25 units of regular insulin thinking he is going to eat lunch and his symptoms started happening. No prior episodes of these recently. No recent falls or injury prior and no hx of heart problems or arrhythmias. No CVA, seizures or VTE. 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 Smoke: No ALCOHOL: none Drugs: None Lives: with Family (spouse) CURRENT MEDICATIONS CURRENT MEDICATIONS Current Medications Medications (Trade) Dose Ordered Sig/Emir Route PRN Reason Start Time Stop Time Status Last Admin Dose Admin Sodium Chloride 1,000 ml @ 1,000 mls/hr 1X ONCE IV 01/03/20 16:00 01/03/20 16:59 DC 01/03/20 16:52 Pantoprazole Sodium (Protonix) 40 mg 1X ONCE PO 01/03/20 17:15 01/03/20 17:16 DC 01/03/20 17:33 Potassium Chloride (Klor-Con) 40 meq 1X ONCE PO 01/03/20 17:15 01/03/20 17:16 DC 01/03/20 17:33 Metoclopramide HCl (Reglan Vial) 10 mg 1X ONCE IVP 01/03/20 18:30 01/03/20 18:31 DC 01/03/20 19:12 Hydralazine HCl (Apresoline Inj) 10 mg 1X ONCE IVP 01/03/20 18:30 01/03/20 18:31 DC 01/03/20 19:12 Sodium Chloride 1,000 ml @ 125 mls/hr Q8H IV 01/03/20 18:46 01/04/20 18:45 01/04/20 05:01 Influenza Virus Vaccine Quadrival (Afluria Quad 2019-20 (3yr Up) Syringe) 0.5 ml ONCE ONCE VAX IM 01/04/20 09:00 01/04/20 09:01 DC 01/04/20 08:37 Acetaminophen (Tylenol) 325 mg PRN Q4HRS PRN PO MILD PAIN / TEMP 01/04/20 02:00 01/04/20 02:08 Sodium Chloride 1,000 ml @ 125 mls/hr Q8H IV 01/04/20 09:45 01/04/20 11:45 Amlodipine Besylate (Norvasc) 10 mg DAILY PO 01/04/20 11:00 01/04/20 11:04 Insulin Human Lispro (HumaLOG) 25 units TIDWMEALS SQ 01/04/20 12:00 01/04/20 11:33 Losartan Potassium (Cozaar) 100 mg DAILY PO 01/04/20 11:00 01/04/20 11:05 Hydrochlorothiazide (Hydrodiuril) 25 mg DAILY PO 01/04/20 11:00 01/04/20 11:04 Enoxaparin Sodium (Lovenox 40mg Syringe) 40 mg Q24H SQ 01/04/20 11:00 01/04/20 11:05 ALLERGIES ALLERGIES: Coded Allergies: No Known Drug Allergies (Unverified , 05/25/19) ROS Review of System 14 point ROS evaluated with pertinent positives noted per HPI PHYSICAL EXAM General: Alert, Oriented X3, Cooperative, No acute distress HEENT: Atraumatic, Mucous membr. moist/pink Lungs: Clear to auscultation, Normal air movement Heart: Regular rate (EKG SR no tele monitor currently), Normal S1, Normal S2, No murmurs Abdomen: Soft, No tenderness Extremities: No cyanosis, No edema Skin: No breakdown, No significant lesion Neuro: Normal speech, Strength at 5/5 X4 ext, Sensation intact Psych/Mental Status: Mental status NL, Mood NL MUSCULOSKELETAL: Full range of motion without pain VITALS/I&O VITALS/I&O: Vital Signs Date Time Temp Pulse Resp B/P (MAP) Pulse Ox O2 Delivery O2 Flow Rate FiO2 01/04/20 11:05 65 136/85 01/04/20 11:00 98.1 18 97 Room Air 98.1 I & O 01/03/20 01/03/20 01/04/20 15:00 23:00 07:00 Intake Total 1000 ml 640 ml Balance 1000 ml 640 ml LABS Lab: Laboratory Tests Test 01/03/20 16:46 01/03/20 17:37 01/03/20 20:25 01/03/20 20:30 White Blood Count 8.1 x10^3/uL (4.0-11.0) Red Blood Count 5.20 x10^6/uL (4.30-5.70) Hemoglobin 14.2 g/dL (13.0-17.5) Hematocrit 42.1 % (39.0-53.0) Mean Corpuscular Volume 81 fL (79-100) Mean Corpuscular Hemoglobin 27 pg (25-35) Mean Corpuscular Hemoglobin Concent 34 g/dL (31-37) Red Cell Distribution Width 13.4 % (11.5-14.5) Platelet Count 173 x10^3/uL (140-400) Neutrophils (%) (Auto) 74 % (31-73) H Lymphocytes (%) (Auto) 13 % (24-48) L Monocytes (%) (Auto) 11 % (0-9) H Eosinophils (%) (Auto) 1 % (0-3) Basophils (%) (Auto) 1 % (0-3) Neutrophils # (Auto) 6.0 x10^3/uL (1.8-7.7) Lymphocytes # (Auto) 1.1 x10^3/uL (1.0-4.8) Monocytes # (Auto) 0.9 x10^3/uL (0.0-1.1) Eosinophils # (Auto) 0.1 x10^3/uL (0.0-0.7) Basophils # (Auto) 0.1 x10^3/uL (0.0-0.2) Sodium Level 135 mmol/L (136-145) L Potassium Level 3.2 mmol/L (3.5-5.1) L Chloride Level 97 mmol/L (98-107) L Carbon Dioxide Level 30 mmol/L (21-32) Anion Gap 8 (6-14) Blood Urea Nitrogen 20 mg/dL (8-26) Creatinine 1.8 mg/dL (0.7-1.3) H Estimated GFR (Cockcroft-Gault) 49.4 BUN/Creatinine Ratio 11 (6-20) Glucose Level 172 mg/dL (70-99) H Lactic Acid Level 2.5 mmol/L (0.4-2.0) H 1.6 mmol/L (0.4-2.0) Calcium Level 8.6 mg/dL (8.5-10.1) Magnesium Level 1.8 mg/dL (1.8-2.4) Total Bilirubin 0.3 mg/dL (0.2-1.0) Aspartate Amino Transferase (AST) 29 U/L (15-37) Alanine Aminotransferase (ALT) 18 U/L (16-63) Alkaline Phosphatase 123 U/L (46-116) H Troponin I Quantitative < 0.017 ng/mL (0.000-0.055) < 0.017 ng/mL (0.000-0.055) Total Protein 7.6 g/dL (6.4-8.2) Albumin 3.8 g/dL (3.4-5.0) Albumin/Globulin Ratio 1.0 (1.0-1.7) Urine Collection Type Unknown Urine Color Yellow Urine Clarity Clear Urine pH 5.0 (<5.0-8.0) Urine Specific [place] 1.015 (1.000-1.030) Urine Protein 30 mg/dL (NEG-TRACE) Urine Glucose (UA) Negative mg/dL (NEG) Urine Ketones (Stick) Negative mg/dL (NEG) Urine Blood Negative (NEG) Urine Nitrite Negative (NEG) Urine Bilirubin Negative (NEG) Urine Urobilinogen Dipstick 0.2 mg/dL (0.2 mg/dL) Urine Leukocyte Esterase Negative (NEG) Urine RBC Occ /HPF (0-2) Urine WBC Occ /HPF (0-4) Urine Squamous Epithelial Cells Occ /LPF Urine Bacteria 0 /HPF (0-FEW) Urine Hyaline Casts Few /HPF Urine Mucus Mod /LPF Glucose (Fingerstick) 192 mg/dL (70-99) H Test 01/04/20 00:49 01/04/20 07:36 01/04/20 11:26 White Blood Count 6.1 x10^3/uL (4.0-11.0) Red Blood Count 4.73 x10^6/uL (4.30-5.70) Hemoglobin 12.9 g/dL (13.0-17.5) L Hematocrit 37.7 % (39.0-53.0) L Mean Corpuscular Volume 80 fL (79-100) Mean Corpuscular Hemoglobin 27 pg (25-35) Mean Corpuscular Hemoglobin Concent 34 g/dL (31-37) Red Cell Distribution Width 13.5 % (11.5-14.5) Platelet Count 145 x10^3/uL (140-400) Neutrophils (%) (Auto) 59 % (31-73) Lymphocytes (%) (Auto) 28 % (24-48) Monocytes (%) (Auto) 10 % (0-9) H Eosinophils (%) (Auto) 1 % (0-3) Basophils (%) (Auto) 1 % (0-3) Neutrophils # (Auto) 3.6 x10^3/uL (1.8-7.7) Lymphocytes # (Auto) 1.7 x10^3/uL (1.0-4.8) Monocytes # (Auto) 0.6 x10^3/uL (0.0-1.1) Eosinophils # (Auto) 0.1 x10^3/uL (0.0-0.7) Basophils # (Auto) 0.1 x10^3/uL (0.0-0.2) Sodium Level 137 mmol/L (136-145) Potassium Level 3.8 mmol/L (3.5-5.1) Chloride Level 102 mmol/L (98-107) Carbon Dioxide Level 28 mmol/L (21-32) Anion Gap 7 (6-14) Blood Urea Nitrogen 17 mg/dL (8-26) Creatinine 1.4 mg/dL (0.7-1.3) H Estimated GFR (Cockcroft-Gault) 66.0 Glucose Level 192 mg/dL (70-99) H Calcium Level 7.7 mg/dL (8.5-10.1) L Troponin I Quantitative < 0.017 ng/mL (0.000-0.055) Glucose (Fingerstick) 184 mg/dL (70-99) H 214 mg/dL (70-99) H Laboratory Tests 01/03/20 16:46 01/04/20 00:49 Laboratory Tests 01/03/20 16:46 01/04/20 00:49 ASSESSMENT/PLAN ASSESSMENT/PLAN 1. Presyncope 2. VEL: due to dehydration, improved with IV hydration 3. Low grade fever/cough: possible viral syndrome 4. HTN: controlled 5. HLP 6. DM2: on insulin therapy 7. Mild rhabdomyolysis Recommendations 1. Transferring to for telemetry. baseline TTE. Will obtain flu swab and check CK, TSH, A1C, lipids 2. Doubt arrhythmia, suspect from hypotension/volume depletion, hypoglycemic reaction with concomitant anorexia/dehydration and associated use of insulin, BP meds. Discussed BP meds, insulin, side effects and importance of HBPM and carb counting and hydration adequacy. Dietitian consult 3. Resume home BP meds per BP trend. Hold HCTZ/ARB and Statin. Continue with hydralazine. IV hydration JESUS GREENBERG MD 01/05/20 1132: CARDIAC CONSULT ASSESSMENT/PLAN ASSESSMENT/PLAN Patient seen and examined 01/04/20 (late entry). Agree with ELECTROENCEPHALOGRAPHIC TECHNICIAN's assessment and plan. Dizziness and near syncope most probably secondary to dehydration. Acute renal insufficiency improving with intravenous fluids. Telemetry did not show any significant arrhythmia so far. 2-D echo showed normal LV systolic function. Thank you for your consultation. JOE NOLASCO APRN Jan 04, 2020 11:56 JESUS GREENBERG MD Jan 05, 2020 11:32
[2020-01-04 13:10] LABS: INFLUENZA A PATIENT POSITIVE (NEGATIVE); INFLUENZA B PATIENT NEGATIVE (NEGATIVE)
[2020-01-04 13:34] LABS: CHOLESTEROL/HDL RATIO 1.9
[2020-01-04] MEDS ORDERED: hydrALAZINE 20 MG/ML VIAL. IVP PRN (13:45)
[2020-01-04] MEDS: OSELTAMIVIR 75 MG CAPSULE PO SCH ×2 (14:30→21:02)
[2020-01-04] MEDS: hydrALAZINE 25 MG TABLET PO SCH ×2 (14:30→21:03)
[2020-01-04 15:23] VITALS: BP_SYST 148; BP_SYST 165; BP_SYST 168; BP_DIAS 85; BP_DIAS 87; BP_DIAS 89
--- NOTE | 2020-01-04 15:42 | CARD ---
MR#: [id number] Date of Study: 01/04/2020 Ordering Physician: JOE NOLASCO, Referring Physician: JOE NOLASCO, Tech: Katlin Ceballos JAMA APPROVED REPORT EXAM: Two-dimensional and M-mode echocardiogram with Doppler and color Doppler. Other Information Quality : GoodHR: 81bpm Rhythm : NSR INDICATION Dyspnea 2D DIMENSIONS RVDd2.9 (2.9-3.5cm)Left Atrium(2D)3.0 (1.6-4.0cm) IVSd0.9 (0.7-1.1cm)Aortic Root(2D)2.8 (2.0-3.7cm) LVDd3.9 (3.9-5.9cm)LVOT Diameter2.1 (1.8-2.4cm) PWd1.1 (0.7-1.1cm)LVDs2.9 (2.5-4.0cm) FS (%) 27.1 %SV35.4 ml LVEF(%)53.4 (>50%) Aortic Valve AoV Peak Douglas.122.9cm/[place] GR.6.0mmHg LVOT Peak Douglas.73.2cm/sAVA (VMAX)2.02cm2 Mitral Valve MV E Pewtuhvb27.2cm/sMV DECEL VLAJ123hq MV A Rmwccjue43.2cm/sE/A Ratio0.9 MV A [id number] Pulmonary Valve PV Peak Ofksvgya70.8cm/s Tricuspid Valve TR P. Kjjvjwjd407dm/sRAP WMRDIORR5xhHp TR Peak Gr.12ghSmBOUM24amKh Pulmonary Vein S1 Daivojzq49.3cm/sD2 Bsmskxty05.2cm/s PVa nnlqzthm95ztaq LEFT VENTRICLE The left ventricle is normal size. There is normal left ventricular wall thickness. The left ventricu lar systolic function is normal. The Ejection Fraction is 60-65%. There is normal LV segmental wall m otion. Transmitral Doppler flow pattern is Grade I-abnormal relaxation pattern. There is no ventricul ar septal defect visualized. RIGHT VENTRICLE The right ventricle is normal size. The right ventricular systolic function is normal. ATRIA The left atrium size is normal. The right atrium size is normal. The interatrial septum is intact wit h no evidence for an atrial septal defect or patent foramen ovale as noted on 2-D or Doppler imaging. AORTIC VALVE The aortic valve is normal in structure and function. Doppler and Color Flow revealed no significant aortic regurgitation. There is no significant aortic valvular stenosis. MITRAL VALVE The mitral valve is normal in structure and function. There is no mitral valve stenosis. Doppler and Color Flow revealed no mitral valve regurgitation noted. TRICUSPID VALVE The tricuspid valve is normal in structure and function. Doppler and Color Flow revealed trace tricus pid regurgitation. PA pressure is estimated at 23 mmHg. There is no tricuspid valve stenosis. PULMONIC VALVE The pulmonary valve is normal in structure and function. Doppler and Color Flow revealed no pulmonic valvular regurgitation. There is no pulmonic valvular stenosis. GREAT VESSELS The aortic root is normal in size. The ascending aorta is normal in size. The pulmonary artery is nor mal. The IVC is normal in size and collapses >50% with inspiration. PERICARDIAL EFFUSION There is no pleural effusion. There is no evidence of significant pericardial effusion. Critical Notification Critical Value: No <Conclusion> The left ventricular systolic function is normal. The Ejection Fraction is 60-65%. There is normal LV segmental wall motion. Transmitral Doppler flow pattern is Grade I-abnormal relaxation pattern. Trace tricuspid regurgitation. PA pressure is estimated at 23 mmHg. There is no evidence of significant pericardial effusion. Signed by : Duarte Burdick, Electronically Approved : 01/04/2020 15:42:38
[2020-01-04 19:10] VITALS: BP 145/78
[2020-01-04] MEDS ORDERED: ATORVASTATIN CALCIUM 20 MG TABLET PO SCH (21:00)
[2020-01-04] MEDS ORDERED: hydrALAZINE 25 MG TABLET PO SCH (21:00)
[2020-01-04] MEDS: DOCUSATE SODIUM 100 MG CAPSULE. PO SCH (21:02)
[2020-01-04 23:34] VITALS: BP 143/81
[2020-01-05] MEDS: IV NORMAL SALINE 1000ML BAG 1,000 ML IV SCH (03:51)
[2020-01-05 03:57] VITALS: BP 147/81
[2020-01-05 04:11] LABS: BASO % 1 % (0-3); EOS # 0.1 x10^3/uL (0.0-0.7); EOS % 3 % (0-3); HEMATOCRIT 36.8 % (39.0-53.0); HEMOGLOBIN 12.8 g/dL (13.0-17.5); LYMPH # 1.7 x10^3/uL (1.0-4.8); LYMPH % 39 % (24-48); MEAN CORPUSCULAR HEMOGLOBIN 28 pg (25-35); MEAN CORPUSCULAR HGB CONC 35 g/dL (31-37); MEAN CORPUSCULAR VOLUME 79 fL (79-100); MONO # 0.6 x10^3/uL (0.0-1.1); MONO % 13 % (0-9); NEUT % 45 % (31-73); PLATELET COUNT 146 x10^3/uL (140-400); RED BLOOD COUNT 4.64 x10^6/uL (4.30-5.70); RED CELL DISTRIBUTION WIDTH 13.4 % (11.5-14.5); WHITE BLOOD COUNT 4.5 x10^3/uL (4.0-11.0)
[2020-01-05 04:30] LABS: ALBUMIN 3.1 g/dL (3.4-5.0); ALBUMIN/GLOBULIN RATIO 1.1 (1.0-1.7); CREATININE 1.3 mg/dL (0.7-1.3); GFR 71.9; POTASSIUM 3.8 mmol/L (3.5-5.1); TOTAL BILIRUBIN 0.2 mg/dL (0.2-1.0)
--- NOTE | 2020-01-05 07:27 | NUR ---
IP: Pt is influenza + requiring droplet precautions for 7 days and 24 hours without a fever, whichever is longest.
[2020-01-05 07:52] VITALS: BP 151/88
[2020-01-05] MEDS ORDERED: OSEL75CA PO (08:56)
[2020-01-05] MEDS: hydrALAZINE 25 MG TABLET PO SCH (09:15)
[2020-01-05] MEDS: DOCUSATE SODIUM 100 MG CAPSULE. PO SCH (09:15)
[2020-01-05] MEDS: amLODIPine BESYLATE 10 MG TABLET PO SCH (09:16)
[2020-01-05] MEDS: OSELTAMIVIR 75 MG CAPSULE PO SCH (09:16)
[2020-01-05] MEDS: INSULIN LISPRO 300 UNITS/3 ML VIAL. SQ SCH ×2 (09:22→13:35)
[2020-01-05] MEDS ORDERED: POLYETHYLENE GLYCOL 3350 17 GM PACKET. PO ONE (09:30)
[2020-01-05] MEDS ORDERED: SENNOSIDES/DOCUSATE 8.6/50MG TABLET. PO ONE (09:30)
--- NOTE | 2020-01-05 11:00 | PDOC3 ---
Discharge Summary Visit Information Date of Admission: Jan 04, 2020 Date of Discharge: Jan 05, 2020 Admitting Diagnosis Comment: syncope, HTN, Dm2, hypokalemia, hyponatremia, acute renal failure, vasomotor nephropathy Final Diagnosis Problems Medical Problems: (1) Elevated lactic acid level etiology undetermined and currently resolved Status: Acute (2) influenza A improving Status: Acute (3) Syncope and collapse etiology most likely secondary to his acute illness and vasovagal response Status: Acute Brief Hospital Course Allergies Allergies Coded Allergies Type Severity Reaction Last Updated Verified No Known Drug Allergies 05/25/19 No Vital Signs Vital Signs Date Time Temp Pulse Resp B/P (MAP) Pulse Ox O2 Delivery O2 Flow Rate FiO2 01/05/20 09:16 81 151/88 01/05/20 08:00 Room Air 01/05/20 07:52 98.7 20 96 98.7 Lab Results Laboratory Tests Test 01/03/20 16:46 01/03/20 17:37 01/03/20 20:25 01/03/20 20:30 White Blood Count 8.1 x10^3/uL (4.0-11.0) Red Blood Count 5.20 x10^6/uL (4.30-5.70) Hemoglobin 14.2 g/dL (13.0-17.5) Hematocrit 42.1 % (39.0-53.0) Mean Corpuscular Volume 81 fL (79-100) Mean Corpuscular Hemoglobin 27 pg (25-35) Mean Corpuscular Hemoglobin Concent 34 g/dL (31-37) Red Cell Distribution Width 13.4 % (11.5-14.5) Platelet Count 173 x10^3/uL (140-400) Neutrophils (%) (Auto) 74 % (31-73) Lymphocytes (%) (Auto) 13 % (24-48) Monocytes (%) (Auto) 11 % (0-9) Eosinophils (%) (Auto) 1 % (0-3) Basophils (%) (Auto) 1 % (0-3) Neutrophils # (Auto) 6.0 x10^3/uL (1.8-7.7) Lymphocytes # (Auto) 1.1 x10^3/uL (1.0-4.8) Monocytes # (Auto) 0.9 x10^3/uL (0.0-1.1) Eosinophils # (Auto) 0.1 x10^3/uL (0.0-0.7) Basophils # (Auto) 0.1 x10^3/uL (0.0-0.2) Sodium Level 135 mmol/L (136-145) Potassium Level 3.2 mmol/L (3.5-5.1) Chloride Level 97 mmol/L (98-107) Carbon Dioxide Level 30 mmol/L (21-32) Anion Gap 8 (6-14) Blood Urea Nitrogen 20 mg/dL (8-26) Creatinine 1.8 mg/dL (0.7-1.3) Estimated GFR (Cockcroft-Gault) 49.4 BUN/Creatinine Ratio 11 (6-20) Glucose Level 172 mg/dL (70-99) Lactic Acid Level 2.5 mmol/L (0.4-2.0) 1.6 mmol/L (0.4-2.0) Calcium Level 8.6 mg/dL (8.5-10.1) Magnesium Level 1.8 mg/dL (1.8-2.4) Total Bilirubin 0.3 mg/dL (0.2-1.0) Aspartate Amino Transf (AST/SGOT) 29 U/L (15-37) Alanine Aminotransferase (ALT/SGPT) 18 U/L (16-63) Alkaline Phosphatase 123 U/L (46-116) Troponin I Quantitative < 0.017 ng/mL (0.000-0.055) < 0.017 ng/mL (0.000-0.055) Total Protein 7.6 g/dL (6.4-8.2) Albumin 3.8 g/dL (3.4-5.0) Albumin/Globulin Ratio 1.0 (1.0-1.7) Urine Collection Type Unknown Urine Color Yellow Urine Clarity Clear Urine pH 5.0 (<5.0-8.0) Urine Specific [place] 1.015 (1.000-1.030) Urine Protein 30 mg/dL (NEG-TRACE) Urine Glucose (UA) Negative mg/dL (NEG) Urine Ketones (Stick) Negative mg/dL (NEG) Urine Blood Negative (NEG) Urine Nitrite Negative (NEG) Urine Bilirubin Negative (NEG) Urine Urobilinogen Dipstick 0.2 mg/dL (0.2 mg/dL) Urine Leukocyte Esterase Negative (NEG) Urine RBC Occ /HPF (0-2) Urine WBC Occ /HPF (0-4) Urine Squamous Epithelial Cells Occ /LPF Urine Bacteria 0 /HPF (0-FEW) Urine Hyaline Casts Few /HPF Urine Mucus Mod /LPF Glucose (Fingerstick) 192 mg/dL (70-99) Test 01/04/20 00:49 01/04/20 07:36 01/04/20 11:26 01/04/20 12:40 White Blood Count 6.1 x10^3/uL (4.0-11.0) Red Blood Count 4.73 x10^6/uL (4.30-5.70) Hemoglobin 12.9 g/dL (13.0-17.5) Hematocrit 37.7 % (39.0-53.0) Mean Corpuscular Volume 80 fL (79-100) Mean Corpuscular Hemoglobin 27 pg (25-35) Mean Corpuscular Hemoglobin Concent 34 g/dL (31-37) Red Cell Distribution Width 13.5 % (11.5-14.5) Platelet Count 145 x10^3/uL (140-400) Neutrophils (%) (Auto) 59 % (31-73) Lymphocytes (%) (Auto) 28 % (24-48) Monocytes (%) (Auto) 10 % (0-9) Eosinophils (%) (Auto) 1 % (0-3) Basophils (%) (Auto) 1 % (0-3) Neutrophils # (Auto) 3.6 x10^3/uL (1.8-7.7) Lymphocytes # (Auto) 1.7 x10^3/uL (1.0-4.8) Monocytes # (Auto) 0.6 x10^3/uL (0.0-1.1) Eosinophils # (Auto) 0.1 x10^3/uL (0.0-0.7) Basophils # (Auto) 0.1 x10^3/uL (0.0-0.2) Sodium Level 137 mmol/L (136-145) Potassium Level 3.8 mmol/L (3.5-5.1) Chloride Level 102 mmol/L (98-107) Carbon Dioxide Level 28 mmol/L (21-32) Anion Gap 7 (6-14) Blood Urea Nitrogen 17 mg/dL (8-26) Creatinine 1.4 mg/dL (0.7-1.3) Estimated GFR (Cockcroft-Gault) 66.0 Glucose Level 192 mg/dL (70-99) Calcium Level 7.7 mg/dL (8.5-10.1) Creatine Kinase 717 U/L (39-308) Troponin I Quantitative < 0.017 ng/mL (0.000-0.055) Triglycerides Level 62 mg/dL (0-150) Cholesterol Level 83 mg/dL (0-200) LDL Cholesterol, Calculated 28 mg/dL (0-100) VLDL Cholesterol, Calculated 12 mg/dL (0-40) Non-HDL Cholesterol Calculated 40 mg/dL (0-129) HDL Cholesterol 43 mg/dL (40-60) Cholesterol/HDL Ratio 1.9 Thyroid Stimulating Hormone (TSH) 1.147 uIU/mL (0.358-3.74) Glucose (Fingerstick) 184 mg/dL (70-99) 214 mg/dL (70-99) Influenza Type A Antigen Positive (NEGATIVE) Influenza Type B Antigen Negative (NEGATIVE) Test 01/04/20 16:42 01/04/20 20:38 01/05/20 03:00 01/05/20 07:44 Glucose (Fingerstick) 93 mg/dL (70-99) 161 mg/dL (70-99) 126 mg/dL (70-99) White Blood Count 4.5 x10^3/uL (4.0-11.0) Red Blood Count 4.64 x10^6/uL (4.30-5.70) Hemoglobin 12.8 g/dL (13.0-17.5) Hematocrit 36.8 % (39.0-53.0) Mean Corpuscular Volume 79 fL (79-100) Mean Corpuscular Hemoglobin 28 pg (25-35) Mean Corpuscular Hemoglobin Concent 35 g/dL (31-37) Red Cell Distribution Width 13.4 % (11.5-14.5) Platelet Count 146 x10^3/uL (140-400) Neutrophils (%) (Auto) 45 % (31-73) Lymphocytes (%) (Auto) 39 % (24-48) Monocytes (%) (Auto) 13 % (0-9) Eosinophils (%) (Auto) 3 % (0-3) Basophils (%) (Auto) 1 % (0-3) Neutrophils # (Auto) 2.0 x10^3/uL (1.8-7.7) Lymphocytes # (Auto) 1.7 x10^3/uL (1.0-4.8) Monocytes # (Auto) 0.6 x10^3/uL (0.0-1.1) Eosinophils # (Auto) 0.1 x10^3/uL (0.0-0.7) Basophils # (Auto) 0.0 x10^3/uL (0.0-0.2) Sodium Level 142 mmol/L (136-145) Potassium Level 3.8 mmol/L (3.5-5.1) Chloride Level 106 mmol/L (98-107) Carbon Dioxide Level 27 mmol/L (21-32) Anion Gap 9 (6-14) Blood Urea Nitrogen 13 mg/dL (8-26) Creatinine 1.3 mg/dL (0.7-1.3) Estimated GFR (Cockcroft-Gault) 71.9 BUN/Creatinine Ratio 10 (6-20) Glucose Level 136 mg/dL (70-99) Calcium Level 8.0 mg/dL (8.5-10.1) Total Bilirubin 0.2 mg/dL (0.2-1.0) Aspartate Amino Transf (AST/SGOT) 25 U/L (15-37) Alanine Aminotransferase (ALT/SGPT) 20 U/L (16-63) Alkaline Phosphatase 106 U/L (46-116) Total Protein 6.0 g/dL (6.4-8.2) Albumin 3.1 g/dL (3.4-5.0) Albumin/Globulin Ratio 1.1 (1.0-1.7) Laboratory Tests Test 01/04/20 11:26 01/04/20 12:40 01/04/20 16:42 01/04/20 20:38 Glucose (Fingerstick) 214 mg/dL (70-99) 93 mg/dL (70-99) 161 mg/dL (70-99) Influenza Type A Antigen Positive (NEGATIVE) Influenza Type B Antigen Negative (NEGATIVE) Test 01/05/20 03:00 01/05/20 07:44 White Blood Count 4.5 x10^3/uL (4.0-11.0) Red Blood Count 4.64 x10^6/uL (4.30-5.70) Hemoglobin 12.8 g/dL (13.0-17.5) Hematocrit 36.8 % (39.0-53.0) Mean Corpuscular Volume 79 fL (79-100) Mean Corpuscular Hemoglobin 28 pg (25-35) Mean Corpuscular Hemoglobin Concent 35 g/dL (31-37) Red Cell Distribution Width 13.4 % (11.5-14.5) Platelet Count 146 x10^3/uL (140-400) Neutrophils (%) (Auto) 45 % (31-73) Lymphocytes (%) (Auto) 39 % (24-48) Monocytes (%) (Auto) 13 % (0-9) Eosinophils (%) (Auto) 3 % (0-3) Basophils (%) (Auto) 1 % (0-3) Neutrophils # (Auto) 2.0 x10^3/uL (1.8-7.7) Lymphocytes # (Auto) 1.7 x10^3/uL (1.0-4.8) Monocytes # (Auto) 0.6 x10^3/uL (0.0-1.1) Eosinophils # (Auto) 0.1 x10^3/uL (0.0-0.7) Basophils # (Auto) 0.0 x10^3/uL (0.0-0.2) Sodium Level 142 mmol/L (136-145) Potassium Level 3.8 mmol/L (3.5-5.1) Chloride Level 106 mmol/L (98-107) Carbon Dioxide Level 27 mmol/L (21-32) Anion Gap 9 (6-14) Blood Urea Nitrogen 13 mg/dL (8-26) Creatinine 1.3 mg/dL (0.7-1.3) Estimated GFR (Cockcroft-Gault) 71.9 BUN/Creatinine Ratio 10 (6-20) Glucose Level 136 mg/dL (70-99) Calcium Level 8.0 mg/dL (8.5-10.1) Total Bilirubin 0.2 mg/dL (0.2-1.0) Aspartate Amino Transf (AST/SGOT) 25 U/L (15-37) Alanine Aminotransferase (ALT/SGPT) 20 U/L (16-63) Alkaline Phosphatase 106 U/L (46-116) Total Protein 6.0 g/dL (6.4-8.2) Albumin 3.1 g/dL (3.4-5.0) Albumin/Globulin Ratio 1.1 (1.0-1.7) Glucose (Fingerstick) 126 mg/dL (70-99) Brief Hospital Course This is a pleasant 44 yo male admitted for complains of dizziness. Reports that he was heading to the grocery store and he was right by the truck stop when he felt significantly weak, felt flushed, jittery, with blurred vision and sweaty. He fell down to the ground but no apparent injury. He was dizzy but did not completely lose consciousness. Reports that though he is on the floor he was still aware of his surroundings. Denies any chest pain or palpitations at that time. He was given orange juice and EMS checked his BP and his SBP was in the 70s. Apparently in the last 2 days he has not been eating much complaining of appetite lose and has been having nonprodutive cough but no snessing or runny nose. No recorded fever but felt weakn in the last 2 days. Denies any recent exposure to someone who has been sick. Reported some nausea but no vomiting or diarrhea. Despite that he has not been drinking enough he continued on with his BP meds and despite not eating well he continued on with his premeal insulin. Yesterday morning he ate very little amount of rice and did not take his insulin and around 11 AM when he was close tot [employer], he took 25 units of regular insulin thinking he is going to eat lunch and his symptoms started happening. No prior episodes of these recently. No recent falls or injury prior and no hx of heart problems or arrhythmias. No CVA, seizures or VTE. He was diagnosed with influenza during his hospital stay and started on Tamiflu. Patient was quite concerned according to nursing staff that he might be having coronavirus. Patient was given reassurance and at the present time his only complaint is that he has not had a bowel movement. The patient says that from home usually he is on daily Senokot S to have bowel movements. Patient otherwise is asymptomatic at the present time reassurance has been provided and plan of care explained in detail. He will be dismissed home with instructions to follow-up with his primary care physician within 1 week, all of his concerns were addressed to the best of my abilities prior to departure Physical exam for today Gen.: well-developed well-nourished in no apparent distress Head: Normal shape atraumatic Eyes: Pupils equal reactive to light and accommodation, normal conjunctivae and lids Ears: Normal shape Nose: Normal shape no trauma Mouth: No exudates of the back of throat no thrush no lesions Neck: Supple no JVD no carotid bruit or lymphadenopathy no thyromegaly Chest: Lungs clear to auscultation with good inspiratory effort no crackles rales or rhonchi Cardiovascular: S1-S2 regular rhythm no murmurs gallops or rubs Abdomen: Bowel sounds present soft nontender no hepatosplenomegaly appreciated sign Extremities: No clubbing no cyanosis no edema peripheral pulses palpated bilaterally Neurological: Alert awake oriented in person time place and situation, cranial nerves II through XII intact, no motor or sensory deficits appreciated Psych: Appropriate mood, cooperative Discharge Information Condition at Discharge: Improved Follow Up: Weeks Disposition/Orders: D/C to Home Scheduled Amlodipine Besylate (Amlodipine Besylate) 10 Mg Tablet, 10 MG PO DAILY for HTN, (Reported) Entered as Reported by: ALIX PAGE on 10/06/18 1355 Last Action: Continued on 01/04/20 1029 by BLADIMIR MADDEN Atorvastatin Calcium (Atorvastatin Calcium) 20 Mg Tablet, 20 MG PO HS for FOR CHOLESTEROL, #30 Ref 0 (Reported) Entered as Reported by: ALIX PAGE on 10/06/18 1355 Last Action: Continued on 01/04/20 1029 by BLADIMIR MADDEN Docusate Sodium (Colace) 100 Mg Capsule, 1 CAP PO BID for constipation, #30 (Reported) Entered as Reported by: MADISON ANDERSON on 10/11/18 1518 Last Action: Continued on 01/04/20 1029 by BLADIMIR MADDEN Hydralazine Hcl (Hydralazine Hcl) 25 Mg Tablet, 1 TAB PO BID for HTN, #180 Ref 3 (Reported) Entered as Reported by: ALIX PAGE on 10/06/18 1355 Last Action: Continued on 01/04/20 1029 by BLADIMIR MADDEN Insulin Aspart (Novolog Flexpen) 100 Unit/1 Ml Insuln.pen, 25 UNIT SQ AC for DM, (Reported) Entered as Reported by: ALIX PAGE on 10/06/181354 Last Action: Converted on 01/04/20 102 by BLADIMIR MADDEN Insulin Glargine,Hum.rec.anlog (Lantus Solostar) 100 Unit/1 Ml Insuln.pen, 70 UNIT SQ DAILY for DM, (Reported) Entered as Reported by: ALIX PAGE on 10/06/181354 Last Action: Converted on 01/04/201028 by BLADIMIR MADDEN Valsartan/Hydrochlorothiazide (Diovan Hct 320-25 Mg Tablet) 1 Each Tablet, 1 TAB PO DAILY for HTN, #30 Ref 5 (Reported) Entered as Reported by: ALIX PAGE on 10/06/181354 Last Action: Converted on 01/04/201028 by BLADIMIR MADDEN Scheduled PRN Sildenafil Citrate (Viagra) 100 Mg Tablet, 100 MG PO ONCE PRN for ED, (Reported) Entered as Reported by: ALIX PAGE on 10/06/181354 Last Action: HELD on 01/04/20 102 by AMANDA PORTILLO MD Jan 05, 2020 10:59
[2020-01-05 11:59] VITALS: BP_SYST 139; BP_SYST 148; BP_SYST 149; BP_DIAS 84; BP_DIAS 88
--- NOTE | 2020-01-05 15:13 | NUR ---
Discharge Note: [facility] Discharge instructions and discharge home medications reviewed with Patient and a copy given. All questions have been answered and understanding verbalized. The following instructions and handouts were given: patient visit report, medication information, education. Discontinued lines and drains: peripheral IV, tip intact. Patient discharged to home with self care via cab pass. Patient left unit awake, in stable condition, with all personal belonings.
[2020-01-06 00:08] LABS: HEMOGLOBIN A1C 7.5 % (4.8-5.6)
== END 2020-01-05 13:40 | disposition home or self-care (01) | DRG 640 ==
LOC: ER 15:51 → 4 NORTH 18:28 → OBSVTOIN 18:28 → 6 SOUTH 01-04 13:18
PROVIDERS: ADMIT Internal Medicine; ATTEND Internal Medicine
DX: E86.0 Dehydration (principal); N17.0 Acute kidney failure with tubular necrosis; M62.82 Rhabdomyolysis; E87.1 Hypo-osmolality and hyponatremia; J10.1 Influenza due to other identified influenza virus with other respiratory manifestations; E87.6 Hypokalemia; I10 Essential (primary) hypertension; E78.5 Hyperlipidemia, unspecified; Z90.49 Acquired absence of other specified parts of digestive tract; Z82.49 Family history of ischemic heart disease and other diseases of the circulatory system; Z83.3 Family history of diabetes mellitus; Z79.4 Long term (current) use of insulin
CPT/HCPCS: 36415; 70450; 71045; 80048; 80053; 80061; 81001; 82550; 82962; 83036; 83605; 83735; 84443; 84484; 85025; 87040; 87086; 87804; 90471; 90686; 93005; 93306; 96361; 96374; 96375; J0360; J1650; J1815; J2765; J7030; 99285-25; G0378

== ENCOUNTER → 2020-10-12 | Outpatient (CLI) | payer BC ==
[2020-01-05 11:59] VITALS: BP 148/88
[~2020-10-12] MED LIST changes: +AMLO-187 PO; -AMLO10TA8 PO; +OSEL75CA PO
--- NOTE | 2020-10-13 03:37 | RAD ---
INDICATION: Multinodular goiter COMPARISON: November 21, 2019. TECHNIQUE: Grayscale and color ultrasound images obtained of the thyroid. FINDINGS: Right Lobe: 54 x 21 x 20 mm. Left Lobe: 42 x 14 x 14 mm. Multiple bilateral thyroid nodules are identified. Largest on the right is solid appearing with mixed echogenicity but predominantly isoechoic to adjacent thyroid tissue measuring 19 x 13 x 11 mm. There is some additional hypoechoic solid-appearing nodules measuring up to 8 mm within the right lobe. Wi thin the left lobe the dominant nodule appears complex cystic measuring 14 x 9 mm. There is also a he terogenous solid nodule in the left measuring 8 x 6 mm. No evidence of growth of the dominant nodules when compared to prior examination. IMPRESSION: * Multinodular thyroid is again seen without evidence of growth of the dominant nodules within the bilateral thyroid. Electronically signed by: Tonio El MD (10/13/2020 3:35 AM) [id number]
== END ==
LOC: US 16:20
PROVIDERS: ATTEND Family Medicine
DX: E04.2 Nontoxic multinodular goiter (principal)
CPT/HCPCS: 76536